=== PATIENT | female | born 1935 | race Caucasian/White ===

== ENCOUNTER 2022-03-07 07:23 | Day surgery (SDC) | payer MEDICARE, BC, SELFPAY ==
[2022-03-07 07:45] VITALS: BMI 25.3
[2022-03-07 07:54] VITALS: BP 122/96; PULSE 80; RESP 16; TEMP 36.6; O2SAT 97
[2022-03-07] MEDS: LACTATED RINGERS 1000 ML 1,000 ML 100 ML IV (08:00)
[2022-03-07] MEDS: SODIUM CHLORIDE 0.9 % (FLUSH) 10 ML SYRINGE IVF (08:05)
[2022-03-07] MEDS: LIDOCAINE 1% MDV 20 ML INJECTION (09:37)
[2022-03-07] MEDS: BUPIVACAINE 0.25% 30 ML INJECTION (09:37)
[2022-03-07 10:02] VITALS: BP 107/74; PULSE 59; RESP 14; TEMP 36.1; O2SAT 94
--- NOTE | 2022-03-07 10:04 | W.ANESCHARGE ---
Anesthesia Charges Start Date/Time Anesthesia Start Date: 03/07/22 Anesthesia Start Time: 09:18 Stop Date/Time Anesthesia Stop Date: 03/07/22 Anesthesia Stop Time: 10:05 Summary Emergency: No Extremes of Age: Over 70-CPT 71167
--- NOTE | 2022-03-07 10:08 | W.PM.GYNPROC ---
Procedure Note Date Seen: 03/07/22 Procedure Details: PREOPERATIVE DIAGNOSIS: 1. Thickened endometrial stripe by ultrasound. 2. Atypical squamous cells, favor endometrial, seen on endometrial biopsy. Additional sample requested for definitive diagnosis. POSTOPERATIVE DIAGNOSIS: 1. Thickened endometrial stripe by ultrasound. 2. Atypical squamous cells, favor endometrial, seen on endometrial biopsy. Additional sample requested for definitive diagnosis. NAME OF PROCEDURE: 1. Hysteroscopy. 2. D and C 3. Polypectomies (x3). SURGEON: Fabiola. ANESTHESIA: Monitored anesthesia care and paracervical block. COMPLICATIONS: None.. ESTIMATED BLOOD LOSS: Less than 10 mL. FINDINGS: 3 endometrial polyps. Two were benign-appearing, globular, approximately 1 cm in diameter each, arising from the posterior endometrial cavity. The 3rd was broad-based and smaller, slightly hyperemic, located along the right side of the endometrial cavity near the internal cervical os. PATHOLOGY SPECIMENS: 1. Endometrial polyps and endometrial curettings sent as a single specimen. PROCEDURE: After obtaining informed consent, the patient was taken to the operating room where she received monitored anesthesia care. She was prepared and draped in the normal sterile fashion, in the dorsal lithotomy position. An open-sided bivalve speculum was introduced into the vagina and the cervix visualized. The anterior lip of the cervix was grasped with a single-tooth tenaculum for traction. A paracervical block was then administered using a total of 20 mL of a 50/50 mixture of 0.25% Marcaine and 1% lidocaine plain. The uterus was gently sounded. Sound length was 7.5 cm. The cervix was gently dilated to a #6 Hegar dilator. A hysteroscope was then advanced under direct visualization through the cervix into the uterine cavity. Sterile normal saline was used as distending medium. The uterine cavity was carefully inspected with the findings noted above. The TruClear morcellator was inserted through the operating channel in the hysteroscope. The morcellator was used to remove the polyps in their entirety. Pictures were taken for documentation purposes, however, due to technical difficulties, the pictures taken prior to polyp removal were not saved in the system. The hysteroscope was then removed. The endometrial lining was then sharply curetted. The hysteroscope was removed. The tenaculum was removed. There was little bleeding from the tenaculum site, which was controlled with direct pressure sponge stick. All instruments were then removed. The patient tolerated the procedure well. Sponge, lap, needle, and instrument counts reported as correct x2. The patient was taken to the recovery room awake in a stable condition.
[2022-03-07 10:17] VITALS: BP 113/74; PULSE 59; RESP 14; O2SAT 94
[2022-03-07 10:30] VITALS: BP 129/78; PULSE 70; RESP 16; O2SAT 96
[2022-03-07 10:45] VITALS: BP 122/88; PULSE 72; RESP 16; O2SAT 97
--- NOTE | 2022-03-07 10:49 | W.ANESCHARGE ---
Anesthesia Charges Start Date/Time Anesthesia Start Date: 03/07/22 Anesthesia Start Time: 09:18 Stop Date/Time Anesthesia Stop Date: 03/07/22 Anesthesia Stop Time: 10:05 Summary Emergency: No Extremes of Age: Over 70-CPT 69132
[2022-03-07 11:00] VITALS: BP 120/77; PULSE 74; RESP 16; O2SAT 97
== END 2022-03-07 11:12 | disposition home or self-care (01) ==
PROVIDERS: PCP Family Medicine; Visit Provider Obstetrics & Gynecology
PROC: 0UDB8ZZ Extraction of Endometrium, Via Natural or Artificial Opening Endoscopic (ICD-10-PCS; CPT 58558; principal; 2022-03-07 08:45)
DX: R93.89 Abnormal findings on diagnostic imaging of other specified body structures (principal); N84.0 Polyp of corpus uteri; R87.619 Unspecified abnormal cytological findings in specimens from cervix uteri
CPT/HCPCS: 58558; 00952; 99100; J1100; J2405; J2704; J3010; J3490; J7120

== ENCOUNTER 2022-05-22 10:38 | Emergency (ER) | payer MEDICARE, BC, SELFPAY ==
[2022-05-22] VITALS (34 sets, daily range): BP systolic 111–148; BP diastolic 62–106; PULSE 51–72; RESP 16; TEMP 36.1–37; O2SAT 94–99; BMI 24.1
--- NOTE | 2022-05-22 11:04 | CRLHL7_ITS ---
For Patients: As a result of the Century Cures Act, medical imaging exams and procedure reports are released immediately into your electronic medical record. You may view this report before your referring provider. If you have questions, please contact your health care provider. Indication: Left-sided numbness Technique: Volumetric multidetector CT images of the head were obtained without the administration of low osmolar intravenous contrast. Comparison: CT head November 29, 2014 Findings: There is no intra-axial or extra-axial fluid collection. There is no mass effect or midline shift. There is age-related cortical atrophy with mild sulcal widening and ex vacuo dilatation of the lateral ventricles. There is again seen extensive subcortical and periventricular hypoattenuation consistent with chronic small vessel disease changes. There are likely superimposed old lacunar changes of the right greater than left basal ganglia. Otherwise, the brain parenchyma is preserved in attenuation and king-white differentiation. The orbits and their contents are grossly within normal limits. The bony calvarium is grossly intact. The paranasal sinuses are clear. The mastoid air cells are well aerated. Impression: Redemonstration and mild progression of chronic small vessel disease changes of the white matter from remote comparison without evidence of new acute intracranial abnormality. If there is persistent clinical concern for subtle lacunar infarct, follow-up with MRI is recommended. Please note that all CT scans at this facility use dose modulation, iterative reconstruction, and/or weight-based dosing when appropriate to reduce radiation dose to as low as reasonably achievable. Dictated by Anselmo Hansen MD @ 05/22/2022 11:50:26 AM (Electronically Signed)
--- NOTE | 2022-05-22 11:25 | CRLHL7_ITS ---
For Patients: As a result of the Cures Act, medical imaging exams and procedure reports are released immediately into your electronic medical record. You may view this report before your referring provider. If you have questions, please contact your health care provider. INDICATION: Recurrent left hemiparesis. Headaches. TECHNIQUE: Sagittal T1, axial FLAIR, T2, diffusion-weighted and susceptibility weighted images of the brain. COMPARISON: CT brain performed earlier today 05/22/2022. FINDINGS: The ventricles are normal in size and configuration. Mild prominence of convexity subarachnoid spaces due to mild volume loss. There is no evidence of recent ischemic infarction. There are no areas of diffusion restriction. There is no evidence of intracranial hemorrhage. There are multifocal and confluent areas of FLAIR/T2 hyperintensity within the bilateral supratentorial white matter, basal ganglia and ade consistent with chronic small vessel ischemic disease and/or small chronic lacunar infarcts. No post orbital or suprasellar mass. Mild focal mucosal thickening in the left frontal sinus and in the inferior left mastoid. The other paranasal sinuses are clear. IMPRESSION: 1. No evidence of recent ischemic infarction, intracranial hemorrhage or mass. 2. Multifocal signal abnormalities within cerebral white matter basal ganglia and ade consistent with moderate chronic microvascular ischemia. Dictated by Deandre Purvis MD @ 05/22/2022 1:24:03 PM (Electronically Signed)
--- NOTE | 2022-05-22 11:26 | ED_ITS ---
HPI - Neuro Symptoms/Deficit General Chief Complaint: Neuro Symptoms/Altered Deficit Stated Complaint: Numbness left side Time Seen by Provider: 05/22/22 11:06 History of Present Illness HPI Narrative: This 86-year-old female comes in reporting 3 episodes of left hemiparesis. She states that she began getting headaches about a week ago. She does not typically get headaches. Three days ago she had left basilia paresis with decreased sensation and strength in her left upper and lower extremity. This lasted 5-10 minutes then resolved. She had another similar episode yesterday. Again this morning she had loss of sensation and strength in her left side also including her face. These symptoms have resolved but she did feel unsteady when ambulating to the car to come here. She is otherwise in good health. She states that she has not had imaging of her brain in the past. Related Data Home Medications Medication Instructions Recorded Confirmed cholecalciferol (vitamin D3) 25 2,000 unit PO .Bedtime 12/26/21 05/22/22 mcg (1,000 unit) tablet nortriptyline 10 mg capsule 20 mg PO .hs 12/26/21 05/22/22 Allergies Allergy/AdvReac Type Severity Reaction Status Date / Time No Known Drug Allergies Allergy Verified 05/22/22 10:57 Review of Systems Status of ROS: Reports: 10 or more systems reviewed and unremarkable except as noted in History and below Narrative: Constitutional: No fevers, no weight gain or loss. Eyes: No discharge. No vision changes. HENT: No congestion, no sore throat, no ear pain. Migraine headaches as described above. Cardiovascular: No chest pain, no palpitations. Respiratory: No shortness of breath, no wheezes, no cough. Gastrointestinal: No abdominal pain, no vomiting, no diarrhea. Genitourinary: No dysuria, no hematuria. Musculoskeletal: Normal range of motion. Skin: No rashes, no pruritis. Neurological: No dizziness or speech change. She reports episodes of decreased sensation and strength in the left side as described above. Endo/Heme/Allergies: No bruising or bleeding. No polydipsia. Pysch: no suicidality, no anxiety, no insomnia. All other systems reviewed and are negative. 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 Highest level of school completed/degree received: Master's degree Physical activity type details: Biking and walking How many days of moderate to strenuous exercise, like a brisk walk, did you do in the last 7 days: 5 Smoking Status: Never smoker How often do you have a drink containing alcohol: 4 or more times a week How many standard drinks containing alcohol do you have on a typical day: 1 or 2 AUDIT-C Alcohol total score: 4 Non-prescribed substance use: denies use Caffeine: No Are you now , , , , never or living with a partner: Social isolation score (0-1 are the most socially isolated patients): 0 Do you think of yourself as: straight/heterosexual Gender Identity: female Are you currently sexually active: Yes In the past 12 months, how many sex partners have you had: one Exam Narrative: Exam Narrative: Constitutional: Well-developed, well-nourished, no acute distress. HEENT: Normocephalic, atraumatic. Neck: Normal range of motion. Nontender. Supple. Heart: Regular. No murmurs. Normal rate. Intact distal pulses. Lungs: Clear to auscultation. No chest discomfort. No wheezes, rhonchi, or rales. Abdomen: Normal bowel sounds. Nontender. No rebound tenderness. Genitalia: Deferred. Back: No midline tenderness. Normal range of motion. Extremities: Normal range of motion. No injury. Skin: Intact. No rash. Warm. No erythema or pallor. Neurologic: No altered sensation. Alert and oriented. No facial asymmetry. Tongue is midline. [id number] is normal. No pronator drift. She is able to raise her right leg up to my hand but has some difficulty raising her left leg. Psychiatric: No suicidality. No anxiety or depression. No insomnia. Nursing notes and vitals signs are reviewed. Const: Vital Signs, click to edit/add: Vital Signs - 24 hr 05/22/22 10:49 05/22/22 11:56 05/22/22 12:00 Temperature 98.6 F Pulse Rate 64 65 Pulse Rate [Right Pulse Oximeter] 51 L Respiratory Rate 16 Blood Pressure Blood Pressure [Ri ght Upper Arm] 148/84 H Pulse Oximetry 98 95 95 Oxygen Delivery Me thod Room Air 05/22/22 12:02 05/22/22 13:04 05/22/22 13:06 Temperature Pulse Rate 65 63 63 Pulse Rate [Right Pulse Oximeter] Respiratory Rate Blood Pressure 125/75 132/90 H Blood Pressure [Ri ght Upper Arm] Pulse Oximetry 96 96 94 Oxygen Delivery Me thod 05/22/22 13:15 05/22/22 13:30 05/22/22 13:32 Temperature Pulse Rate 63 64 68 Pulse Rate [Right Pulse Oximeter] Respiratory Rate Blood Pressure 121/62 Blood Pressure [Ri ght Upper Arm] Pulse Oximetry 96 95 97 Oxygen Delivery Me thod 05/22/22 13:45 05/22/22 14:00 05/22/22 14:02 Temperature Pulse Rate 69 64 65 Pulse Rate [Right Pulse Oximeter] Respiratory Rate Blood Pressure 121/76 Blood Pressure [Ri ght Upper Arm] Pulse Oximetry 98 98 97 Oxygen Delivery Me thod 05/22/22 14:15 05/22/22 14:30 05/22/22 14:31 Temperature Pulse Rate 65 65 66 Pulse Rate [Right Pulse Oximeter] Respiratory Rate Blood Pressure 111/75 Blood Pressure [Ri ght Upper Arm] Pulse Oximetry 94 96 96 Oxygen Delivery Me thod 05/22/22 14:45 05/22/22 13:00 05/22/22 15:09 Temperature 97 F L Pulse Rate 61 66 Pulse Rate [Right Pulse Oximeter] Respiratory Rate Blood Pressure Blood Pressure [Ri ght Upper Arm] Pulse Oximetry 95 99 Oxygen Delivery Me thod 05/22/22 15:15 05/22/22 15:30 05/22/22 15:31 Temperature Pulse Rate 65 66 66 Pulse Rate [Right Pulse Oximeter] Respiratory Rate Blood Pressure 119/70 Blood Pressure [Ri ght Upper Arm] Pulse Oximetry 97 96 97 Oxygen Delivery Me thod 05/22/22 15:32 05/22/22 15:45 05/22/22 16:00 Temperature Pulse Rate 64 68 66 Pulse Rate [Right Pulse Oximeter] Respiratory Rate Blood Pressure Blood Pressure [Ri ght Upper Arm] Pulse Oximetry 96 96 97 Oxygen Delivery Me thod 05/22/22 16:01 05/22/22 16:15 05/22/22 16:30 Temperature Pulse Rate 66 64 63 Pulse Rate [Right Pulse Oximeter] Respiratory Rate Blood Pressure 116/67 Blood Pressure [Ri ght Upper Arm] Pulse Oximetry 97 94 97 Oxygen Delivery Me thod 05/22/22 16:32 05/22/22 16:33 05/22/22 16:45 Temperature Pulse Rate 65 65 67 Pulse Rate [Right Pulse Oximeter] Respiratory Rate Blood Pressure 120/79 Blood Pressure [Ri ght Upper Arm] Pulse Oximetry 97 96 97 Oxygen Delivery Me thod 05/22/22 17:00 05/22/22 17:01 05/22/22 17:15 Temperature Pulse Rate 72 68 71 Pulse Rate [Right Pulse Oximeter] Respiratory Rate Blood Pressure 139/106 H Blood Pressure [Ri ght Upper Arm] Pulse Oximetry 95 97 97 Oxygen Delivery Me thod Course Vital Signs Vital signs: Initial Vital Signs Temperature 98.6 F 05/22/22 10:49 Temperature Source Temporal Artery Scan 05/22/22 10:49 Pulse Rate 51 L 05/22/22 10:49 Respiratory Rate 16 05/22/22 10:49 Blood Pressure 148/84 H 05/22/22 10:49 Blood Pressure Mean 105 05/22/22 10:49 Blood Pressure Position Sitting 05/22/22 10:49 Pulse Oximetry 98 05/22/22 10:49 Oxygen Delivery Method 05/22/22 10:49 Vital Signs Temperature 98.6 F 05/22/22 10:49 Pulse Rate 51 L 05/22/22 10:49 Respiratory Rate 16 05/22/22 10:49 Blood Pressure 148/84 H 05/22/22 10:49 Pulse Oximetry 98 05/22/22 10:49 Oxygen Delivery Method 05/22/22 10:49 Temperature 97 F L 05/22/22 13:00 Pulse Rate 71 05/22/22 17:15 Respiratory Rate 16 05/22/22 10:49 Blood Pressure 139/106 H 05/22/22 17:01 Pulse Oximetry 97 05/22/22 17:15 Oxygen Delivery Method 05/22/22 10:49 MDM - Neuro Symptoms/Deficit MDM Narrative Medical decision making narrative: This patient comes in with recurrent left hemiparesis with associated headaches. She has had headaches over the past week and reports that prior to this she did not have headaches. She has had 3 episodes of brief hemiparesis involving the left side lasting fiber 10 minutes. Upon arrival here her exam is normal except for some mild weakness of her left lower extremity. Her NIH stroke scale returns at a score of 2 based on this left lower extremity weakness. CT imaging of the head shows no acute findings. Her symptoms are suspicious such that I did order an MRI with and without contrast of the head. This was done without contrast and returns with no acute findings. I did speak with a neurologist application packager at [facility] regarding these matters. He recommended CTA of the head and neck and stated if there was no vascular compromise that the patient would be able to go home and take an aspirin daily. If there is some narrowing of the vessels Plavix could be added. CT angiogram results returned with no such findings so the patient is okay to be discharged home and encouraged to take an aspirin daily and to follow-up with her primary physician. I advised her to return if symptoms are recurrent. Lab Data Labs: Lab Results 05/22/22 05/22/22 05/22/22 Range/Units 11:50 11:50 11:50 WBC 5.48 (4.50-11.00) K/uL RBC 4.43 (4.00-5.20) m/uL Hgb 13.8 (12.0-16.0) gm/dL Hct 41.0 (33.0-51.0) % MCV 93 (80-100) fL MCH 31 (26-34) pg MCHC 34 (32-36) gm/dL RDW Coeff of [place] 12.0 (11.5-15.5) % Plt Count 291 (140-440) K/uL Neut % (Auto) 60.8 (42.0-72.0) % Lymph % (Auto) 27.7 (20-44) % [place] % (Auto) 7.7 (0.0-11.0) % Eos % (Auto) 2.0 (0.0-7.0) % Baso % (Auto) 0.9 (0.0-3.0) % Neut # (Auto) 3.33 (1.7-7.0) K/uL Lymph # (Auto) 1.52 (0.90-2.90) K/uL [place] # (Auto) 0.40 (0.00-0.90) K/UL Eos # (Auto) 0.11 (0.00-0.50) K/uL Baso # (Auto) 0.05 (0.00-0.30) K/uL INR 0.88 L (0.91-1.10) Sodium 139 (135-149) mmol/L Potassium 4.5 (3.6-5.1) mmol/L Chloride 108 (96-114) mmol/L Carbon Dioxide 28 (20-32) mmol/L BUN 19 (7-30) mg/dL Creatinine 0.7 (0.5-1.5) mg/dL Estimated Creat Clear 36.34 Estimated GFR 84 ml/min Glucose 86 (60-115) mg/dL Calcium 9.0 (8.4-10.6) mg/dL Imaging Data CT scan - head: Radiologist's impression: mpression: Redemonstration and mild progression of chronic small vessel disease changes of the white matter from remote comparison without evidence of new acute intracranial abnormality. If there is persistent clinical concern for subtle lacunar infarct, follow-up with MRI is recommended. MRI Head: Radiologist's impression: FINDINGS: The ventricles are normal in size and configuration. Mild prominence of convexity subarachnoid spaces due to mild volume loss. There is no evidence of recent ischemic infarction. There are no areas of diffusion restriction. There is no evidence of intracranial hemorrhage. There are multifocal and confluent areas of FLAIR/T2 hyperintensity within the bilateral supratentorial white matter, basal ganglia and ade consistent with chronic small vessel ischemic disease and/or small chronic lacunar infarcts. No post orbital or suprasellar mass. Mild focal mucosal thickening in the left frontal sinus and in the inferior left mastoid. The other paranasal sinuses are clear. IMPRESSION: 1. No evidence of recent ischemic infarction, intracranial hemorrhage or mass. 2. Multifocal signal abnormalities within cerebral white matter basal ganglia and ade consistent with moderate chronic microvascular ischemia. CTA head/neck: Radiologist's impression: The thoracic aorta demonstrates a normal super arch branching pattern. The common carotid arteries are patent. The carotid bifurcations demonstrate no significant atherosclerotic calcification or mural thrombus. No evidence of high-grade stenosis according to the NASCET criteria. The distal internal carotid arteries are patent. There is a dominant right and mildly hypoplastic left vertebral artery which are otherwise patent throughout their lengths. There is minimal atherosclerotic calcification within the carotid siphons. The anterior cerebral and middle cerebral arteries are patent. The basilar artery is patent. The posterior cerebral arteries are patent with mild atherosclerotic irregularity of the proximal right posterior cerebral artery. ECG Data Attestation: I personally reviewed and interpreted this ECG as follows: Interpretation: Normal sinus rhythm. Rate is 75 beats per minute. There are no ST or T-wave abnormalities. Discharge Plan Discharge Clinical Impression: Transient cerebral ischemia Patient Disposition: Home w/ Parent or Adult Condition: Improved Additional Instructions: Taken aspirin daily. Follow-up with primary physician. Return if symptoms are recurrent or worsening. Prescriptions: No Action nortriptyline 10 mg capsule 20 mg PO .hs cholecalciferol (vitamin D3) 25 mcg (1,000 unit) tablet 2,000 unit PO .Bedtime Follow Up/Referrals: Angeles Huntley MD [Primary Care Provider] - Stand Alone Forms: [employer] Info Instructions
[2022-05-22 11:58] LABS: Basophils Absolute Auto 0.05 K/uL (0.00-0.30); Basophils Percent Auto 0.9 % (0.0-3.0); Eosinophils Absolute Auto 0.11 K/uL (0.00-0.50); Hemoglobin* 13.8 gm/dL (12.0-16.0); Immature Granulocytes Abs Auto 0.05 K/uL (0.00-0.30); Immature Granulocytes Pct Auto 0.9 %; Lymphocytes Absolute Auto 1.52 K/uL (0.90-2.90); Lymphocytes Percent Auto 27.7 % (20-44); Mean Corpuscular HGB Conc 34 gm/dL (32-36); Mean Corpuscular Hemoglobin 31 pg (26-34); Mean Corpuscular Volume 93 fL (80-100); Monocytes Percent Auto 7.7 % (0.0-11.0); Neutrophils Absolute Auto 3.33 K/uL (1.7-7.0); Neutrophils Percent Auto 60.8 % (42.0-72.0); Platelet Count* 291 K/uL (140-440); Red Blood Count 4.43 m/uL (4.00-5.20); White Blood Count* 5.48 K/uL (4.50-11.00)
[2022-05-22 12:12] LABS: Slide Review Reflex No
[2022-05-22 12:16] LABS: Chloride* 108 mmol/L (96-114); INR 0.88 (0.91-1.10); Potassium* 4.5 mmol/L (3.6-5.1); Prothrombin Time 12.5 Seconds; Sodium* 139 mmol/L (135-149)
[2022-05-22 12:18] LABS: Creatinine* 0.7 mg/dL (0.5-1.5); Est. Creatinine Clearance* 36.34; Estimated Glomerular Filt Rate 84 ml/min
[2022-05-22 12:19] LABS: Blood Urea Nitrogen* 19 mg/dL (7-30); Carbon Dioxide* 28 mmol/L (20-32); Glucose* 86 mg/dL (60-115)
--- NOTE | 2022-05-22 14:20 | CT_ITS ---
Final Report Patient: LION COELLO Facility:?[facility] Patient ID:?[id number] Site Patient [id number]:?[id number]. Site :?[id number] Study:?CT Head Angio 95CC ISOVUE 370 NON ACUTE-05/22/2022 3:07:31 PM Ordering Physician:Gonzalo Zhang Final Report: DATE: 05/22/2022. CLINICAL HISTORY: Acute neurological deficit. TECHNIQUE: Standard helical CT image acquisition through the head and neck was performed after intravenous contrast bolus enhancement. Multiplanar reconstructed images were performed and interpreted. COMPARISON: None available. FINDINGS: The origins of the great vessels from the aortic arch are patent. The origins of the right and left vertebral arteries are patent. The common carotid arteries are patent. No significant luminal stenoses of the proximal internal carotid arteries by NASCET criteria. The more distal cervical segments of the internal carotid arteries are patent. The cervical segments of the vertebral arteries are patent. Intracranial atherosclerotic disease with short-segment occlusion of the mid P2 segment of the right posterior cerebral artery. In addition, there is [id number] stenosis of the proximal P2 segment of the left posterior cerebral artery. No evidence of cerebral aneurysm or findings to suggest an arteriovenous shunting lesion. IMPRESSION: 1. 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 This is of unknown chronicity. 2. Intracranial atherosclerotic disease with mild to moderate stenosis of the proximal P2 segment of the left posterior cerebral artery. 3. Patent cervical arterial vasculature without hemodynamically significant luminal stenosis. Please note that all CT scans at this facility use dose modulation, iterative reconstruction, and/or weight-based dosing when appropriate to reduce radiation dose to as low as reasonably achievable. Dictated by Sascha Deleon MD @ 05/22/2022 5:12:12 PM (Electronic Signature)
== END 2022-05-22 17:40 | disposition home or self-care (01) ==
PROVIDERS: Emergency Provider Emergency Medicine Emergency Medical Services; PCP Family Medicine
DX: G45.9 Transient cerebral ischemic attack, unspecified (principal)
CPT/HCPCS: 36415; 70450; 70496; 70498; 70551; 80048; 85025; 85610; 93005; 99285; Q9967

== ENCOUNTER 2023-01-21 12:37 | Emergency (ER) | payer MEDICARE, BC, SELFPAY ==
[2023-01-21] VITALS (8 sets, daily range): BP systolic 170; BP diastolic 94; PULSE 62–74; RESP 16; TEMP 36.7; O2SAT 93–96; BMI 24.1
--- NOTE | 2023-01-21 12:40 | ED.GENADULT ---
HPI - General Adult General Time Seen by Provider: 12:40 Date Seen: 01/21/23 Chief complaint: Chest Pain Stated complaint: Tightness and pain in chest and diff swallowing Time Seen by Provider: 01/21/23 12:40 Source: patient and RN notes reviewed Mode of arrival: ambulatory Limitations: no limitations History of Present Illness HPI narrative: This 87-year-old female is ambulatory into the ED accompanied by a male plaster applicator with chest tightness. They were going to go shopping and she developed chest pain while grocery shopping. She felt it substernal centrally in the chest, was sharp for about 20 minutes. She can not say that there was associated shortness of breath. With it though she felt a sense of tightening in her throat. No sense of palpitations, no nausea or vomiting, no abdominal pain. She has not been sick with anything. Maybe a little sense of heartburn type feeling with these symptoms. At time of presentation, she has had symptoms for about 45 minutes, the you sharp worst part of it has gone away. She is left with more of a dull type sensation. She has not had anything like this before, has not been diagnosed with heart disease. She a few years ago maybe was having some more left-sided chest discomfort and points more to her axillary area, she has not had any of those symptoms maybe for a couple of years now. In May she was having potential TIAs with left sided lower extremity paresis, associated with migraine headaches. She was down at [place] recently for corneal transplant surgery, the eye doctor she was seen was worried about her not having a diagnosis, had recommended she see Neurology which they are working on. Have reviewed with patient that her symptoms do not seem to be consistent with a TIA today and she does agree with this, her concern is obviously her heart. She does state if she gets a chest CT, her doctor at [place] wanted her to have 1 with IV contrast. Did review with her that we will be doing a D-dimer, this is certainly a possibility that we will consider for imaging. Thromboembolic disease with consideration for pulmonary emboli certainly are a diagnosis we entertain when people come in with chest symptoms. She last took her aspirin last night, takes it at night. Did review with her that we will give her aspirin now in case this may be her heart. She reports that she is still walking, very active. Yesterday she walked 2 miles. Related Data Home Medications Medication Instructions Recorded Confirmed cholecalciferol (vitamin D3) 25 2,000 unit PO .Bedtime 12/26/21 05/22/22 mcg (1,000 unit) tablet nortriptyline 10 mg capsule 20 mg PO .hs 12/26/21 05/22/22 Allergies Allergy/AdvReac Type Severity Reaction Status Date / Time No Known Drug Allergies Allergy Verified 01/21/23 12:54 Review of Systems Status of ROS: Reports: 6 or more systems reviewed and unremarkable except as noted in History and below [facility] Medical History Health care directive on file ?Z78.9 - Other specified health status (ICD-10) Diverticular disease (03/17/09) ?K57.90 - Diverticulosis of intestine, part unspecified, without perforation or abscess without bleeding (ICD-10) Fracture of left patella (2007) ?S82.002A - Unspecified fracture of left patella, initial encounter for closed fracture (ICD-10) Herpes simplex conjunctivitis, 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) ?B00.53 - Herpesviral conjunctivitis (ICD-10) Surgical History 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) ?Z96.649 - Presence of unspecified artificial hip joint (ICD-10) History of carpal tunnel release (03/17/09) ?Z98.890 - Other specified postprocedural states (ICD-10) Hx of appendectomy ?Z90.49 - Acquired absence of other specified parts of digestive tract (ICD-10) Social History 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, 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 Highest level of school completed/degree received: Master's degree Physical activity type details: Biking and walking How many days of moderate to strenuous exercise, like a brisk walk, did you do in the last 7 days: 5 Smoking Status: Never smoker Do you use any of these nicotine containing products: None How often do you have a drink containing alcohol: 4 or more times a week How many standard drinks containing alcohol do you have on a typical day: 1 or 2 AUDIT-C Alcohol total score: 4 Non-prescribed substance use: denies use Caffeine: No Are you now , , , , never or living with a partner: Social isolation score (0-1 are the most socially isolated patients): 0 Do you think of yourself as: straight/heterosexual Gender Identity: female Are you currently sexually active: Yes In the past 12 months, how many sex partners have you had: one service: No Exam Const: Vital Signs, click to edit/add: Vital Signs - 24 hr 01/21/23 12:50 01/21/23 12:50 01/21/23 13:09 Temperature 98.1 F Pulse Rate 63 Pulse Rate [Right Pulse Oximeter] 74 Respiratory Rate 16 Blood Pressure [Ri ght Upper Arm] 170/94 H Pulse Oximetry 96 96 95 Oxygen Delivery Me thod Room Air 01/21/23 13:15 01/21/23 13:30 01/21/23 13:34 Temperature Pulse Rate 65 63 Pulse Rate [Right Pulse Oximeter] Respiratory Rate Blood Pressure [Ri ght Upper Arm] Pulse Oximetry 95 94 96 Oxygen Delivery Me thod 01/21/23 13:45 01/21/23 14:00 01/21/23 14:26 Temperature Pulse Rate 62 68 67 Pulse Rate [Right Pulse Oximeter] Respiratory Rate Blood Pressure [Ri ght Upper Arm] Pulse Oximetry 94 93 96 Oxygen Delivery Me thod Megan is an 87-year-old female that is very pleasant, is alert interactive, speech is normal, no hoarseness. Pupils are equal round, sclera clear, face atraumatic, symmetrical facial function. Neck is supple Documenting provider has reviewed patient's vital signs: yes Course Course ED Course: This is an 87-year-old female presenting with chest discomfort. Concerns for vascular phenomenon including such things like aneurysm, dissection, cardiac disease with ischemia are all possibilities. We will also consider thromboembolic disease such as pulmonary emboli. This could be musculoskeletal or GI as well. We will have her on cardiac monitoring, pulse oximetry. She understands that we will be able to get a point of care troponin rather quickly. Depending on what I find with that, will likely proceed with medications. We are going to give her 324 mg chewable aspirin now. Consider chest CT imaging. Full complement of labs will be done. Reevaluation(s) Time of Reevaluation #1: 13:35 Reevaluation #1: Have reviewed with patient her D-dimer is elevated, initial troponin is normal. We will be proceeding with chest CT PE protocol. Her D-dimer was 1.6. She is aware that she will need to follow up troponin in a few hours here. Pain overall is better, describes it just as a little dull ache now. She has been stung by a bee yesterday, has been using some Benadryl, was on her thumb area and see no evidence of any anaphylaxis with changes in vital signs, reviewed with them unlikely to be an allergic reaction with a bee sting happening yesterday. I see no evidence of any rash anywhere. I do appreciate them bringing this up, reviewed signs and symptoms of allergic reaction which I do not believe is her issue at this time. Time of Reevaluation #2: 16:39 Reevaluation #2: Have brought in patient's CT report and her lab report. There was a question of edema or some mild changes in the lung parenchyma. I did physically see this when I ran through the CT scan. Her proBNP is completely normal. She is now chest pain-free and troponins and EKGs have not show any evidence of elevation. I cannot tell her exactly why she had discomfort but at this time I do think she is safe to discharge to home for outpatient follow-up, she does have an appointment this Sunday with her doctor which was pre scheduled. This is very fortuitous. She understands that if she has return of her symptoms, develops any breathing issues, cough for fever, that we do need to see her back in the interim. 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 It is unlikely for her that this will be limiting given that she is 87 at this time. We did discuss mesothelial in a but hopefully this will not be a problematic issue for her. I have a copy of the CT as well as the labs for her to take to her primary, she can get her scheduled for appropriate outpatient further follow-up as needed. Given that she is pain-free, will allow for discharge to home. We have extremely limited bed capacity at this time it, given the fact that she is pain-free and I do trash she will return with return of symptoms, I am comfortable with her having a trial at home to follow-up outpatient. Vital Signs Vital signs: Initial Vital Signs Temperature 98.1 F 01/21/23 12:50 Temperature Source Temporal Artery Scan 01/21/23 12:50 Pulse Rate 74 01/21/23 12:50 Pulse Rhythm Regular 01/21/23 12:50 Pulse Strength 3+ Normal 01/21/23 12:50 Respiratory Rate 16 01/21/23 12:50 Respiratory Effort Normal 01/21/23 12:50 Respiratory Depth Normal 01/21/23 12:50 Respiratory Pattern Normal 01/21/23 12:50 Blood Pressure 170/94 H 01/21/23 12:50 Blood Pressure Mean 119 H 01/21/23 12:50 Blood Pressure Position Sitting 01/21/23 12:50 Pulse Oximetry 96 01/21/23 12:50 Oxygen Delivery Method Room Air 01/21/23 12:50 Vital Signs Temperature 98.1 F 01/21/23 12:50 Pulse Rate 74 01/21/23 12:50 Respiratory Rate 16 01/21/23 12:50 Blood Pressure 170/94 H 01/21/23 12:50 Pulse Oximetry 96 01/21/23 12:50 Oxygen Delivery Method Room Air 01/21/23 12:50 Temperature 98.1 F 01/21/23 12:50 Pulse Rate 67 01/21/23 14:26 Respiratory Rate 16 01/21/23 12:50 Blood Pressure 170/94 H 01/21/23 12:50 Pulse Oximetry 96 01/21/23 14:26 Oxygen Delivery Method Room Air 01/21/23 12:50 Medical Decision Making Lab Data Lab results reviewed: Yes I reviewed the patient's lab results Labs: Lab Results 01/21/23 01/21/23 01/21/23 Range/Units 12:55 12:56 15:55 WBC 5.43 (4.50-11.00) K/uL RBC 4.19 (4.00-5.20) m/uL Hgb 13.4 (12.0-16.0) gm/dL Hct 40.5 (33.0-51.0) % MCV 97 (80-100) fL MCH 32 (26-34) pg MCHC 33 (32-36) gm/dL RDW Coeff of [place] 12.5 (11.5-15.5) % Plt Count 312 (140-440) K/uL Neut % (Auto) 61.6 (42.0-72.0) % Lymph % (Auto) 25.8 (20-44) % [place] % (Auto) 7.9 (0.0-11.0) % Eos % (Auto) 3.9 (0.0-7.0) % Baso % (Auto) 0.6 (0.0-3.0) % Neut # (Auto) 3.35 (1.7-7.0) K/uL Lymph # (Auto) 1.40 (0.90-2.90) K/uL [place] # (Auto) 0.40 (0.00-0.90) K/UL Eos # (Auto) 0.21 (0.00-0.50) K/uL Baso # (Auto) 0.03 (0.00-0.30) K/uL Abs Immat Gran (auto) 0.01 (0.00-0.30) K/uL Imm/Tot Granulo (auto) 0.2 % D-Dimer Quant (PE/DVT) 1.60 H (0.00-0.50) ug/ml Sodium 139 (135-149) mmol/L Potassium 4.1 (3.6-5.1) mmol/L Chloride 107 (96-114) mmol/L Carbon Dioxide 23 (20-32) mmol/L Anion Gap 9 (7-15) mEq/L BUN 17 (7-30) mg/dL Creatinine 0.8 (0.5-1.5) mg/dL Estimated Creat Clear 35.66 Estimated GFR 71 ml/min Glucose 81 (60-115) mg/dL Lactate 0.8 (0.5-1.9) mmol/L Calcium 9.5 (8.4-10.6) mg/dL Magnesium 2.3 (1.5-2.6) mg/dL Total Bilirubin 0.5 (0.1-1.5) mg/dL AST 27 (12-35) U/L ALT 21 (4-35) U/L Alkaline Phosphatase 97 (40-150) U/L C-Reactive Protein < 0.5 L (0.5-1.0) mg/dL NT-Pro-B Natriuret Pep 143 pg/mL Total Protein 7.2 (6.0-8.3) g/dL Albumin 4.3 (3.3-5.0) g/dL POC Troponin I 0.02 0.01 (0.01-0.04) ng/ml Imaging Data Chest x-ray: Attestation: I have reviewed the pertinent imaging results. My impression: I see no acute pathology on my preliminary review of this portable chest x-ray. Radiologist's impression: Patient: MEGAN COELLO Facility:?[facility] Patient ID:?[id number] Site Patient ID:?[id number]. Site :?[id number] Study:?XRay Chest PORTABLE-01/21/2023 1:09:56 PM Ordering Physician:Ubaldo Nettles Final Report: HISTORY: Chest pain. TECHNIQUE: One view of the chest. COMPARISON: 07/09/2009. FINDINGS: Cardiac size is upper limits of normal accounting for technique. No change in mildly tortuous versus mildly dilated appearance of the thoracic aorta. There is no pulmonary vascular congestion. Biapical pleural calcifications are unchanged. There is no acute lung infiltrate or pulmonary edema. No pneumothorax or pleural effusion. IMPRESSION: No acute lung infiltrate or pulmonary edema. Dictated by Soy Raines MD @ 01/21/2023 1:38:08 PM Dictated by: Soy Raines MD @ 01/21/2023 13:38:12 (Electronic Signature) CT scan - chest: Attestation: I have reviewed the pertinent imaging results. Radiologist's impression: Patient: MEGAN COELLO Facility:?[facility] Patient ID:?[id number] Site Patient ID:?[id number]. Site :?[id number] Study:?CT Chest Angio PE STUDY-01/21/2023 2:28:47 PM Ordering Physician:Ubaldo Nettles Final Report: Indication: Chest pain, elevated D-dimer Technique: Volumetric multidetector CT images of the chest were obtained after the administration of IV contrast. 95 cc Isovue 370 low osmolar intravenous contrast Comparison: None available. Findings: The thoracic inlet and thyroid gland are unremarkable. The thoracic aorta is nonaneurysmal. There is no central filling defect to suggest pulmonary embolism. There is no mediastinal, hilar or axillary adenopathy. There is mild central bronchial thickening with minimal mucoid impaction of lower lobe bronchi. There are mildly increased interstitial markings likely representing minimal pulmonary vascular congestion with basilar atelectasis and parenchymal scar. Calcified biapical pleural thickening is appreciated no other dense consolidation or effusion. There is no evidence of pulmonary mass or suspicious pulmonary nodule. The partially visualized upper abdominal viscera are within normal limits. The thoracic vertebral body heights are grossly maintained with mild to moderate multilevel degenerative disc disease. Impression: Mildly increased interstitial markings with basilar atelectasis and mild interstitial prominence consistent with pulmonary edema. 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 No pulmonary embolus or dense consolidation. Please note that all CT scans at this facility use dose modulation, iterative reconstruction, and/or weight-based dosing when appropriate to reduce radiation dose to as low as reasonably achievable. Dictated by Anselmo Hansen MD @ 01/21/2023 3:31:02 PM (Electronic Signature) ECG Data Attestation: I personally reviewed and interpreted this ECG as follows: (Sinus rhythm, 77 beats per minute. Incomplete right bundle branch block, QT corrected 454 milliseconds. The inferior Q-waves looked to be similar to prior.) Prior ECG tracings: available for review (EKG from this May, no significant change.) Interpretation: Repeat EKG timed 2:27 p.m. shows sinus bradycardia, 58 beats per minute, incomplete right bundle branch block, left anterior fascicular block. No significant change, no definitive ischemia. QT corrected 453 milliseconds. Discharge Plan Discharge Clinical Impression: Chest pain Patient Disposition: Home, Self-Care Condition: Stable Instructions: Chest Pain (ED) Additional Instructions: Please take reports and labs to your follow-up with her primary care provider Sunday. In the interim, she do develop return of the chest symptoms, have any breathing issues like shortness of breath, developed cough/fever, do need you to be re-evaluated here in the ER. There was no evidence of pulmonary emboli or blood clots in the lungs, no evidence acute heart attack. I do not think that you are suffering from any congestive heart failure as your proBNP lab does not support fluid overload in the lungs. Your primary care provider does need to see the CT report as there are other findings including the pleural plaques which is typically associated with asbestosis exposure. There is nothing to do with this emergently but is something that needs to be considered to be followed. Discuss this further at your visit. Blood pressure was elevated here, this should be rechecked. If your blood pressure is running high, do recommend that you have this treated with your primary care provider. Activity Level: Activity as Tolerated Prescriptions: No Action nortriptyline 10 mg capsule 20 mg PO .hs cholecalciferol (vitamin D3) 25 mcg (1,000 unit) tablet 2,000 unit PO .Bedtime Follow Up/Referrals: Angeles Huntley MD [Primary Care Provider] - Stand Alone Forms: [email or web address] Info Instructions
--- NOTE | 2023-01-21 12:54 | CRLHL7_ITS ---
For Patients: As a result of the Century Cures Act, medical imaging exams and procedure reports are released immediately into your electronic medical record. You may view this report before your referring provider. If you have questions, please contact your health care provider. HISTORY: Chest pain. TECHNIQUE: One view of the chest. COMPARISON: 07/09/2009. FINDINGS: Cardiac size is upper limits of normal accounting for technique. No change in mildly tortuous versus mildly dilated appearance of the thoracic aorta. There is no pulmonary vascular congestion. Biapical pleural calcifications are unchanged. There is no acute lung infiltrate or pulmonary edema. No pneumothorax or pleural effusion. IMPRESSION: No acute lung infiltrate or pulmonary edema. Dictated by Soy Raines MD @ 01/21/2023 1:38:08 PM Dictated by: Soy Raines MD @ 01/21/2023 13:38:12 (Electronically Signed)
[2023-01-21 13:07] LABS: Lactate* 0.8 mmol/L (0.5-1.9)
[2023-01-21 13:12] LABS: Basophils Absolute Auto 0.03 K/uL (0.00-0.30); Basophils Percent Auto 0.6 % (0.0-3.0); Eosinophils Absolute Auto 0.21 K/uL (0.00-0.50); Eosinophils Percent Auto 3.9 % (0.0-7.0); Hematocrit 40.5 % (33.0-51.0); Hemoglobin* 13.4 gm/dL (12.0-16.0); Immature Granulocytes Abs Auto 0.01 K/uL (0.00-0.30); Immature Granulocytes Pct Auto 0.2 %; Lymphocytes Percent Auto 25.8 % (20-44); Mean Corpuscular HGB Conc 33 gm/dL (32-36); Mean Corpuscular Hemoglobin 32 pg (26-34); Mean Corpuscular Volume 97 fL (80-100); Monocytes Percent Auto 7.9 % (0.0-11.0); Neutrophils Absolute Auto 3.35 K/uL (1.7-7.0); Neutrophils Percent Auto 61.6 % (42.0-72.0); Platelet Count* 312 K/uL (140-440); RDW Coefficient of Variation % 12.5 % (11.5-15.5); Red Blood Count 4.19 m/uL (4.00-5.20); White Blood Count* 5.43 K/uL (4.50-11.00)
[2023-01-21 13:13] LABS: Troponin, Point-of-Care* 0.02 ng/ml (0.01-0.04)
[2023-01-21 13:19] LABS: Slide Review Reflex No
[2023-01-21 13:23] LABS: Chloride* 107 mmol/L (96-114)
[2023-01-21 13:24] LABS: Albumin* 4.3 g/dL (3.3-5.0); Potassium* 4.1 mmol/L (3.6-5.1); Sodium* 139 mmol/L (135-149)
[2023-01-21 13:26] LABS: Creatinine* 0.8 mg/dL (0.5-1.5); Est. Creatinine Clearance* 35.66; Estimated Glomerular Filt Rate 71 ml/min
[2023-01-21 13:27] LABS: Alanine Aminotransferase* 21 U/L (4-35); Alkaline Phosphatase* 97 U/L (40-150); Anion Gap 9 mEq/L (7-15); Aspartate Amino Transferase* 27 U/L (12-35); Bilirubin Total* 0.5 mg/dL (0.1-1.5); Blood Urea Nitrogen* 17 mg/dL (7-30); Calcium* 9.5 mg/dL (8.4-10.6); Carbon Dioxide* 23 mmol/L (20-32); Glucose* 81 mg/dL (60-115); Total Protein* 7.2 g/dL (6.0-8.3)
[2023-01-21 13:28] LABS: Magnesium* 2.3 mg/dL (1.5-2.6)
[2023-01-21 13:31] LABS: C Reactive Protein* < 0.5 mg/dL (0.5-1.0)
--- NOTE | 2023-01-21 13:32 | CRLHL7_ITS ---
For Patients: As a result of the Century Cures Act, medical imaging exams and procedure reports are released immediately into your electronic medical record. You may view this report before your referring provider. If you have questions, please contact your health care provider. Indication: Chest pain, elevated D-dimer Technique: Volumetric multidetector CT images of the chest were obtained after the administration of IV contrast. 95 cc Isovue 370 low osmolar intravenous contrast Comparison: None available. Findings: The thoracic inlet and thyroid gland are unremarkable. The thoracic aorta is nonaneurysmal. There is no central filling defect to suggest pulmonary embolism. There is no mediastinal, hilar or axillary adenopathy. There is mild central bronchial thickening with minimal mucoid impaction of lower lobe bronchi. There are mildly increased interstitial markings likely representing minimal pulmonary vascular congestion with basilar atelectasis and parenchymal scar. Calcified biapical pleural thickening is appreciated no other dense consolidation or effusion. There is no evidence of pulmonary mass or suspicious pulmonary nodule. The partially visualized upper abdominal viscera are within normal limits. The thoracic vertebral body heights are grossly maintained with mild to moderate multilevel degenerative disc disease. Impression: Mildly increased interstitial markings with basilar atelectasis and mild interstitial prominence consistent with pulmonary edema. 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 No pulmonary embolus or dense consolidation. Please note that all CT scans at this facility use dose modulation, iterative reconstruction, and/or weight-based dosing when appropriate to reduce radiation dose to as low as reasonably achievable. Dictated by Anselmo Hansen MD @ 01/21/2023 3:31:02 PM (Electronically Signed)
[2023-01-21 13:38] LABS: NT Pro B Type NatriureticPept* 143 pg/mL
[2023-01-21 15:59] LABS: Troponin, Point-of-Care* 0.01 ng/ml (0.01-0.04)
== END 2023-01-21 17:44 | disposition home or self-care (01) ==
PROVIDERS: Emergency Provider Family Medicine; PCP Family Medicine
DX: R10.9 Unspecified abdominal pain (principal)
CPT/HCPCS: 36415; 71045; 71275; 80053; 83605; 83735; 83880; 84484; 85025; 85379; 86140; 93005; 94761; 99284; 99285; Q9967

== ENCOUNTER 2023-11-05 06:37 | Outpatient (CLI) | payer MEDICARE, BC, SELFPAY ==
--- OUTSIDE RECORDS SUMMARY | 2023-11-05 06:40 | XMS_ITS | Encounter Summary ---
Author Organization [facility] Address [address] [place] [address] Care Team Providers Care Career Guidance Counselor Name Role Phone Elsewhere, Pcp Primary Care Provider Unavailabl e Reason for Visit * Reason Comments Eye Exam * Outpatient (Routine) - Closed Specialty Diagnoses / Procedures Referred By Dominick lopez Referred To Contact Ophthalmology Lyly Rivera M.D. [address] [place] [phone] [facility] Referral ID Status Reason Start Date Expiration Date Visits Re quested Visits Authorized [id number] Closed 03/23/2023 03/22/2026 1 1 Encounter Details Date Type Department Care Team (Latest Contact Info) Description 10/31/2023 10:45 AM CDT Office Visit Department of Ophthalmology in [place], [place] [address] [place] [phone] Lyly Rivera M.D. [address] [place] [phone] Endothelial Corneal Dystrophy Bilateral (Primary Dx); Glaucoma Suspect Ocular Hypertension Bilateral Social History Tobacco Use Types Packs/Day Years Used Date Smoking Tobacco: Never Smokeless Tobacco: Never Alcohol Use Standard Drinks/Week Comments Not Currently 0 (1 standard drink = 0.6 oz pur e alcohol) [facility] Utilities Answer Date Recorded In the past 12 months has [employer], gas, oil, or water AF83 threatened to shut off services in your home? No 10/27/2023 Humiliation, Afraid, Rape, and Kick questionnair e Answer Date Recorded Within the last year, have y ou been afraid of your partner or ex-partner? No 08/27/2022 Within the last year, have y ou been humiliated or emotionally abused in other ways by your partner or ex-partner? No Within the last year, have y ou been kicked, hit, slapped, or otherwise physically hurt by your partner or ex-partner? No 08/27/2022 Within the last year, have y ou been raped or forced to have any kind of sexual activity by your partner or ex-partner? No 08/27/2022 Social Connection and Isolat ion Panel [NHANES] Answer Date Recorded In a typical week, how many times do you talk on the phone with family, friends, or neighbors? More than three times a week 08/27/2022 How often do you get togethe r with friends or relatives? Three times a week 08/27/2022 How often do you attend chur ch or amish services? More than 4 times per year 08/27/2022 Do you belong to any clubs o r organizations such as restoration groups, unions, fraternal or athletic groups, or school groups? Yes 08/27/2022 How often do you attend meet ings of the clubs or organizations you belong to? More than 4 times per year 08/27/2022 Are you , , di vorced, , never , or living with a partner? Living with partner 08/27/2022 AUDIT-C Answer Date Recorded Q1: How often do you have a drink containing alc ohol? 2-3 times a week 08/27/2022 Q2: How many drinks containi ng alcohol do you have on a typical day when you are drinking? 1 or 2 08/27/2022 Q3: How often do you have si x or more drinks on one occasion? Never 08/27/2022 Overall Financial Resource Strain (CARDIA) Answe r Date Recorded How hard is it for you to pa y for the very basics like food, housing, medical care, and heating? Not hard at all 08/27/2022 [facility] of Occupat ional Health - Occupational Stress Questionnaire Answer Date Recorded Do you feel stress - tense, restless, nervous, or anxious, or unable to sleep at night because your mind is troubled all the time - these days? Only a little 08/27/2022 Exercise Vital Sign Answer Date Recorde d On average, how many days pe r week do you engage in moderate to strenuous exercise (like a brisk walk)? 7 days 10/27/2023 On average, how many minutes do you engage in exercise at this level? 40 min 10/27/2023 Hunger Vital Sign Answer Date Recorded Within the past 12 months, y ou worried that your food would run out before you got the money to buy more. Never true 10/27/19 24 Within the past 12 months, t he food you bought just didn't last and you didn't have money to get more. Never true 10/27/2023 PRAPARE - Transportation Answer Date Re corded In the past 12 months, has l ack of transportation kept you from medical appointments or from getting medications? No 10/12 In the past 12 months, has l ack of transportation kept you from meetings, work, or from getting things needed for daily living? No 10/27/2023 Nutrition Answer Date Recorded On average, how many serving s of fruits and vegetables do you eat per day (serving size is equal to 1 cup or approximately the size of a tennis ball)? 5 or more 10/27/2023 Dental Answer Date Recorded Dental: Regular Dentist Yes 08/28/19 23 Employment Answer Date Recorded Employment status Retired 10/27/2023 Housing Stability Answer Date Recorded What is your living situation today? I have a [facility] place to live 10/27/2023 Education Answer Date Recorded What is the highest level of school you have completed or the highest degree you have received? Master's degree (e.g., MA, MS, Haley, MEd, PHARMACY BENEFIT MANAGER, [place]) 08/27/2022 Sex and Gender Information Value Date Recorded Sex Assigned at Female 06/30/2022 11:25 AM TAX MAP TECHNICIAN Gender Identity Female 06/30/2022 11:25 AM TAX MAP TECHNICIAN Sexual Orientation Not on file documented as of this encounter Plan of Treatment Scheduled Orders Name Type Priority Associated Diagnoses Orde r Schedule Optical Coherence Tomography - Optic Nerve - OU - Both Eyes Ophthalmology Routine Glaucoma Suspect Ocular Hypertension Bilateral Expected: 10/31/2023 (Approximate), Expires: 01/30/2025 [place] Tomography (Pentacam) - OU - Both Eyes Ophthalmology Routine Endothelial Corneal Dystrophy Bilateral Expected: 10/31/2023 (Approximate), Expires: 01/30/2025 documented as of this encounter Visit Diagnoses Diagnosis Endothelial Corneal Dystrophy Bilateral- Primary Glaucoma Suspect Ocular Hypertension Bilateral documented in this encounter Care Teams Career Guidance Counselor Relationship Specialty Start Date End Date Elsewhere, Pcp PCP - General Internal Medicine 08/04/22 documented as of this encounter
--- OUTSIDE RECORDS SUMMARY | 2023-11-05 06:40 | XMS_ITS | Clinical Summary ---
Author Organization [email or web address] Address [place], [place] [address] Care Team Providers Care Bobcat Operator Name Role Phone Angeles Huntley MD Primary Care Provide r Allergies Active Allergy Reactions Criticality Noted Date Comments Bee Venom Protein (Honey Bee) Hives High 2022 Medications Medication Sig Dispensed Refills Start Date End Date Status Cholecalciferol, Vitamin D3, (VITAMIN D-3) 2,000 unit tablet Take 2 tablets by mouth once daily. 0 02/13/2017 Active aspirin 325 mg tabletIndications :TIA (transient ischemic attack) Take 1 Tablet (325 mg) by mouth once daily with a meal. 0 05/23/2022 Active prednisoLONE acetate 1% ophthalmic (ECONOPRED PLUS, PRED FORTE, OMNIPRED) suspension Place 1 Drop into left eye four times daily. 08/01/2022 Active cyanocobalamin (VITAMIN B12) 1,000 mcg tablet Take 1 Tablet (1,000 mcg) by mouth once daily. 0 01/23/2023 Active nortriptyline (PAMELOR) 10 mg capsuleIndication s:Mild recurrent major depression (HC) Take 3 Capsules (30 mg) by mouth at bedtime. 270 Capsule 3 01/23/2023 Active omeprazole (PRILOSEC) 20 mg Delayed-Release capsuleIndication s:Gastroesophagea l reflux disease, unspecified whether esophagitis present TAKE ONE CAPSULE BY MOUTH ONCE DAILY BEFORE A MEAL 90 Capsule 1 07/17/2023 Active polyethylene glycol-electrolyt e (GOLYTELY) 236-22.74-6.74 -5.86 gram suspensionIndicat ions:Encounter for screening colonoscopy Drink 2 liters (half the bottle) the day before colonoscopy and 2 liters (remaining prep) 6 hours prior to colonoscopy appointment. 4000 mL 09/06/2023 Active vit-mineral eye [id number] mg-lut-zeax (PreserVision AREDS-2) capsuleIndication s:AMD (age related macular degeneration) Take 1 Capsule by mouth two times daily. 10/30/2023 Active valACYclovir (VALTREX) 500 mg tabletIndications :Recurrent cold sores,History of corneal transplant TAKE ONE TABLET BY MOUTH 3 TIMES DAILY FOR 30 DAYS 90 Tablet 12/02/2022 Discontinue d(*Patient states no longer taking) Active Problems Problem Noted Date Diagnosed Date History of corneal transplant 08/19/2022 Adenomatous colon polyp 07/16/2019 Overview: Colonoscopy 07/2019- 25 mm polyp with high-grade dysplasia, several smaller tubular adenomas, repeat colonoscopy in 6 months at [facility] to assure complete removal of the high-grade dysplasia polyp Colonoscopy 07/2020 3 polyps, repeat in 3 years Fuchs' corneal dystrophy 09/14/2015 Sensorineural hearing loss, bilateral 03/11/2014 Vitamin D deficiency 07/25/2013 Status post right hip replacement 10/11/2011 Osteopenia 10/11/2011 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 Goncalves Herpes simplex conjunctivitis of left eye 1961 Overview: [id number] Resolved Problems Problem Noted Date Diagnosed Date Resolved Date Stressful life event affecting family 07/19/2011 04/02/2018 Overview: Spouse ill and in fragile health Encounters Date Type Department Care Team Description 10/30/2023 12:15 PM CDT Ancillary Procedure [facility] [address] [place] [address] 10/30/2023 10:55 AM CDT Preop Visit [facility] [address] [place] [address] Angeles Huntley MD Pre-Op Exam (Colonoscopy 11/05/23 [facility]/Has had hard BM's, has been using Mirilax /); Knee Pain/problem (Fell in July. Still has pain in the left knee area./Neuropathy./Ca n discuss at wellness check ) 10/30/2023 Travel 09/11/2023 10:40 AM CDT Ancillary Procedure [facility] [address] [place] [address] 09/11/2023 Travel 09/06/2023 Telephone [facility] [address] [place] [address] Donis Polo MD Screening 09/04/2023 Medical Messaging [facility] [address] [place] [address] Angeles Huntley MD need to schedule colonoscopy and mammogram now? from Last 3 Months Immunizations Name Administration Dates Next Due AMB INFLUENZA IIV3 (AGE 65+ YRS) PF (Flu Clinic Only) 04/30/2019 AMB Influenza, IIV3 (Age >=3 years)(Flu Clinic Only) 02/20/2012 Amb Influenza, Inact (High-d ose) (Flu Clinic Only) 03/11/2015 COVID-19 vaccine (Pfizer-Bio NTech 30mcg/0.3mL) 12YO+ BIVALENT PF, MDV 04/20/2022 COVID-19 vaccine (Pfizer-Bio NTech 30mcg/0.3mL) PF, MDV 08/23/2021,02/07/2021,07/08/2020,06/17 Hepatitis A (Adult) 12/20/2001,05/03/2000 Hepatitis B (Adult) 05/24/2009,01/20/2002,2001 Influenza A (H1N1), Inactivated 03/11/2009 Influenza Virus, Unspecified 04/30/2019, 04/02/2018,02/13/2017,05/25,03/11/2015,02/04/2014,03/20/2013 ,02/20/2012,01/30/2011,03/03/2010,02/12,02/16/2009,03/06/2008, 7,02/28/2005,02/24/2004,02/28/2003 Influenza, High-dose Inactivated 05/25/2016,01/13 Influenza, High-dose Quadriv alent Inactivated 03/02/2021,02/03/2020 Influenza, IIV3 (Age 6-35 mos) 01/30/2011,2009 Influenza, IIV3 (Age >=3 years) 02/05/20 14,03/20/2013,01/30/2011,03/03,03/06/2008,03/05/2007,02/28/2005 ,02/24/2004,02/28/2003 Influenza, Inactivated AIIV4 (Age 65+ Years) Preserv Free 02/09/2023,02/28/2022 Influenza, Inactivated IIV3 (Age 65+ Years) Preserv Free 04/02/2018,02/13/2017 Pneumococcal Poly,23-Valent (Pneumovax) 07/19/2012,05/03/2000 Pneumococcal conj 13-Valent (Prevnar 13) 08/10/2015 RSV, Recombinant ADJ Reconst ituted (Arexvy 120MCG/0.5mL) 02/24/2023 Td (Age >=7 Years) 08/22/2006,01/06/1997 Td, Preservative Free (age >= 7 Years) 7 Tdap 05/31/2011 Typhoid (injectable) 07/07/2016,05/24/19 10,12/20/2001,01/06 Yellow Fever 05/24/2009 Zoster (Shingrix-RZV, recombinant) 04/02/2019, Zoster (Zostavax-ZVL, live) 09/25/2010 Family History Medical History Relation Name Comments Cancer-colon Father mid-80's Other Mother atrial fib, chf Cancer Sister ovarian, age 50 Tinnitus Son Cancer-breast No Family History Relation Name Status Comments Father Mother Sister Son Social History Tobacco Use Types Packs/Day Years Used Date Smoking Tobacco: Never Smokeless Tobacco: Never Tobacco Cessation:Counseling Given: Yes Alcohol Use Standard Drinks/Week Comments Yes 4 (1 standard drink = 0.6 oz pur e alcohol) occas glass of wine PHQ-2 Answer Date Recorded PHQ-2 TOTAL SCORE 0 01/23/2023 Social Connections Answer Date Recorded Frequency of Communication with Friends and Fami ly 0 01/23/2023 Financial Resource Strain Answer Date R ecorded Difficulty of Paying Living Expenses 3 01/23/2023 Difficulty of Paying Living Expenses Not on file 01/23/2023 Food Insecurity Answer Date Recorded Worried About Running Out of Food in the Last Ye ar 1 01/23/2023 Transportation Needs Answer Date Record ed Lack of Transportation (Medical) 1 01/23/2023 Housing Stability Answer Date Recorded Unable to Pay for Housing in the Last Year 1 01/23/2023 Sex and Gender Information Value Date Recorded Sex Assigned at Not on file Gender Identity Not on file Sexual Orientation Not on file Obstetrics History Para Term AB IAB SAB Ectopic Multiple Livin g Live Births 3 3 3 3 Date Outcome GA Total Labor Labor/2nd/3rd Weight Sex Type Anes PTL Alisa A1 A5 Name Clin Term Term Term Last Filed Vital Signs Vital Sign Reading Time Taken Comments Blood Pressure 130/77 10/30/2023 11:10 AM CDT Pulse 71 10/30/2023 11:10 AM CDT Temperature 36.8 ??C (98.2 ??F) 02/20/2022 7:48 AM CD T Respiratory Rate 12 12/26/2021 5:04 PM CDT Oxygen Saturation 99% 10/30/2023 11:10 AM CDT Inhaled Oxygen Concentration - - Weight 68.6 kg (151 lb 3.2 oz) 10/30/2023 11:10 AM CDT Height 162.6 cm (5' 4) 10/30/2023 11:10 AM CDT Body Mass Index 25.95 10/30/2023 11:10 AM CDT Plan of Treatment Health Maintenance Due Date Last Done Comments Tetanus booster 05/31/2021 05/31/2011, 08/12, 08/22/2006, Additional history exists COVID-19 vaccine series ( season) 2023 02/09/2023, 04/20/2022, 08/23/2021, Additional history exists Influenza for age 65+ 01/13/2024 02/09/2023 , 02/28/2022, 03/02/2021, Additional history exists Depression screening for age 12+ 01/24/2024 01/23/2023, 08/09/2021, 06/20/2021, Additional history exists Medicare Wellness for age 65+ 01/24/2024, 08/09/2021, 07/09/2020, Additional history exists BMI (ht and wt on same day) for age 18+ 10/29/2024 10/30/2023, 01/23/2023, 02/28/2022, Additional history exists Tdap Completed 05/31/2011 Pneumococcal series for age 65+ Completed 08/10/2015, 07/19/2012, 05/03/2000 Zoster (shingles) series for age 50+ Completed 04/02/2019, 01/25/2019, 09/25/2010 DEXA/DXA scan for age 65+ Completed 2019, 07/25/2013, 06/05/2011 Procedures Procedure Name Priority Date/Time Associated Diagnosis Comments XR KNEE 3 VIEWS LEFT Routine 10/30/2023 12:14 PM CDT Acute pain of left knee XR MAMMO BILAT SCREENING Routine 09/11/2023 10:53 AM CDT Visit for screening mammogram XR DXA BONE DENSITY 2 SITES AXIAL Routine 07/09/2019 11:46 AM BATH TESTER Menopause from Last 3 Months or Most Recently Relevant to Health Maintenance Results * XR KNEE 3 VIEWS LEFT (10/30/2023 12:14 PM CDT) Anatomical Region Laterality Modality KNEES, KNEE L Computed Radiogr aphy 10/31/2023 8:57 AM CDT Narrative 10/31/2023 8:57 AM CDT For Patients: ??As a result of the 21st Century Cures Act, medical imaging exams and procedure reports are released immediately into your electronic medical record. ??You may view this report before your referring provider. ??If you have questions, please contact your health care provider. Indication: Knee pain Technique: Left knee 3 views Comparison: None Findings: Medial compartment narrowing and spurring with increased varus angulation. Osteopenia. No fracture. Mild patellofemoral narrowing and spurring. No large joint effusion. Impression: Moderate medial compartment degenerative joint disease and mild patellofemoral compartment degenerative joint disease. Dictated by Ricardo Cheng MD @ 10/31/2023 8:57:40 AM (Electronically Signed) Procedure Note Ricardo Cheng MD - 10/31/2023 For Patients: As a result of the Cures Act, medical imagingexams and procedure reports are released immediately into your electronicmedical record. You may view this report before your referring provider.If you have questions, please contact your health care provider. Indication: Knee pain Technique: Left knee 3 views Comparison: None Findings: Medial compartment narrowing and spurring with increased varus angulation.Osteopenia. No fracture. Mild patellofemoral narrowing and spurring. Nolarge joint effusion. Impression: Moderate medial compartment degenerative joint disease and mildpatellofemoral compartment degenerative joint disease. Dictated by Ricardo Cheng MD @ 10/31/2023 8:57:40 AM (Electronically Signed) Angeles Huntley MD GENERAL IMAGI NG * XR MAMMO BILAT SCREENING (09/11/2023 10:53 AM CDT) Anatomical Region Laterality Modality BREASTS, Breast Left, Breast Right Bilateral Mammography Impressions 09/11/2023 2:55 PM CDT ??There is no radiographic evidence for malignancy. ??Recommend annual mammograms. MAMMOGRAM ASSESSMENT: ??ACR 1 Negative PATIENTS: You will also receive a letter with your examination results in an easy to read format. ??If you have questions about your results, please contact your referring provider. Narrative 09/11/2023 2:55 PM CDT For Patients: As a result of the Cures Act, medical imaging exams and procedure reports are released immediately into your electronic medical record. You may view this report before your referring provider. If you have questions, please contact your health care provider. XR MAMMO BILAT SCREENING [[id number]] CLINICAL HISTORY: ??This is an asymptomatic 87 y.o. patient. INDICATION FOR EXAM: Mammogram Screening. TECHNIQUE: CC & MLO views were obtained. ??This study was evaluated with the assistance of Computer-Aided Detection. COMPARISON FILM: Yes 08/17/21 [facility] 07/09/20 [facility] FINDINGS: ??The breasts are heterogeneously dense, which may obscure small masses. There are no dominant masses, suspicious micro calcifications or areas of architectural distortion. Angeles Huntley MD MAMMO * (ABNORMAL) XR DXA BONE DENSITY 2 SITES AXIAL (07/09/2019 11:46 AM BATH TESTER) Anatomical Region Laterality Modality Spine, HIPS, HIPL, HIPR Other Narrative 07/14/2019 10:47 AM BATH TESTER Please see scanned document for results of this study. Angeles Huntley MD DEXA from Last 3 Months or Most Recently Relevant to Health Maintenance Advance Directives Documents on File Type Date Recorded Patient Occupational Work Experience Teacher Expl anation Healthcare Directive 12/12/2021 022 Healthcare Directive 10/12/2011 12:41 PM M Alexander HEALTH CARE DIRECTIVE, [facility], 01/14/2007 Care Teams Bobcat Operator Relationship Specialty Start Date End Date Angeles Huntley MD [address] [place] [address] PCP - General Family Practice 10/05/11
--- OUTSIDE RECORDS SUMMARY | 2023-11-05 06:40 | XMS_ITS | Encounter Summary ---
Author Organization [facility] Address [address] [place] [address] Care Team Providers Care Hardware Manager Name Role Phone Elsewhere, Pcp Primary Care Provider Unavailabl e Reason for Visit * Reason Onset Date Comments Pre-visit Intake 10/16/2023 Encounter Details Date Type Department Care Team (Latest Contact Info) Description 10/16/2023 9:15 AM CDT Clinical Communication Virtual Review in [place], [place] [address] [place] [phone] Pre-visit Intake Social History Tobacco Use Types Packs/Day Years Used Date Smoking Tobacco: Never Smokeless Tobacco: Never Tobacco Cessation:Counseling Given: Not Answered Alcohol Use Standard Drinks/Week Comments Not Currently 0 (1 standard drink = 0.6 oz pur e alcohol) Humiliation, Afraid, Rape, and Kick questionnair e [...] often do you attend chur ch or congregational services? More than 4 times per year 08/27/2022 Do you belong to any clubs o r organizations such as sabianist groups, unions, fraternal or athletic groups, or [...] and heating? Not hard at all 08/27/2022 [facility] Occupat ional Health - Occupational Stress [...] exercise (like a brisk walk)? 7 days 08/27/2022 On average, how many minutes do you engage in exercise at this level? 60 min 08/27/2022 Hunger Vital Sign Answer Date Recorded Within the past 12 months, y ou worried that your food would run out before you got the money to buy more. Never true 08/28/19 23 Within the past 12 months, t he food you bought just didn't last and you didn't have money to get more. Never true 08/27/2022 PRAPARE - Transportation Answer Date Re corded In the past 12 months, has l ack of transportation kept you from medical appointments or from getting medications? No 08/12 In the past 12 months, has l ack of transportation kept you from meetings, work, or from getting things needed for daily living? No 08/27/2022 Housing Stability Vital Sign Answer Zaid e Recorded In the last 12 months, was t here a time when you were not able to pay the mortgage or rent on time? No 08/27/2022 In the last 12 months, how many places have you lived? 1 08/27/2022 In the last 12 months, was t here a time when you did not have a steady place to sleep or slept in a fpc (including now)? No 08/27/2022 Nutrition Answer Date Recorded On average, how many serving s of fruits and vegetables do you eat per day (serving size is equal to 1 cup or approximately the size of a tennis ball)? 4-5 08/27/2022 Dental Answer Date Recorded Dental: Regular Dentist Yes 08/28/19 Employment Answer Date Recorded Employment status Retired 08/27/2022 Education Answer Date Recorded What is the highest level of school you have completed or the highest degree you have received? Master's degree (e.g., MA, MS, Haley, MEd, IMPLEMENTATION PROJECT MANAGER, [place]) 08/27/2022 Sex and Gender Information Value Date Recorded Sex Assigned at Female 06/30/2022 11:25 AM PREFITTER Gender Identity Female 06/30/2022 11:25 AM PREFITTER Sexual Orientation Not on file documented as of this encounter Plan of Treatment Not on file documented as of this encounter Visit Diagnoses Not on filedocumented in this encounter Care Teams Hardware Manager Relationship Specialty Start Date End Date Elsewhere, Pcp PCP - General Internal Medicine 08/04/22 documented as of this encounter
--- OUTSIDE RECORDS SUMMARY | 2023-11-05 06:40 | XMS_ITS | Encounter Summary ---
Author Organization [facility] Address [address] [place] [address] Care Team Providers Care Precision Mechanical Instrument Maker Name Role Phone Elsewhere, Pcp Primary Care Provider Unavailabl e Encounter Details Date Type Department Care Team (Late st Contact Info) Description 01/05/2005 Historical Ophthalmology RST OPH Jaime Prasad M.D. Social History Tobacco Use Types Packs/Day Years Used Date Smoking Tobacco: Never Assessed Sex and Gender Information Value Date Recorded Sex Assigned at Female 06/30/2022 11:25 AM ESTATE PLANNING PARALEGAL Gender Identity Female 06/30/2022 11:25 AM ESTATE PLANNING PARALEGAL Sexual Orientation Not on file documented as of this encounter Progress Notes * Jaime Prasad M.D. 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 pt went to her local eye doctor to be evaluated for cataract surgery. was told she has fuchs dystrophy as well. 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 No AM to PM difference. IMPRESSION / REPORT / PLAN #1 Fuchs dystrophy #2 cataract #3 anterior basememt membrane dystrophy Combine for aberration . Plan ;Discussed relateive contribution of each. The Cornea guttata are extensive but with a thickness in the low 500u range, should tolerate unocmplicted phace. May be a bit steamy initially. ABMD may play a luis armando in postop aberration, but lookds mild now. Discussed allscenarios > 30minutes DIAGNOSIS #1 Fuchs dystrophy #2 cataract #3 anterior basememt membrane dystrophy CDM Reports - EYEGEN Id: [id number] Status: Fnl documented in this encounter Plan of Treatment Not on file documented as of this encounter Visit Diagnoses Not on filedocumented in this encounter Care Teams Precision Mechanical Instrument Maker Relationship Specialty Start Date End Date Elsewhere, Pcp PCP - General Internal Medicine 08/04/22 documented as of this encounter
--- OUTSIDE RECORDS SUMMARY | 2023-11-05 06:40 | XMS_ITS | Clinical Summary ---
Author Organization [facility] Address [address] [place] [address] Care Team Providers Care Zipper Measurer Name Role Phone Elsewhere, Pcp Primary Care Provider Unavailabl e Source Comments Patient records contain information from all sites at [facility]. For routine questions regarding patient records, call [phone] during business hours, M-F 8:00 AM - 5:00 PM Central Time. Record requests for emergency care only can be directed to [phone] at any time.[facility] Allergies Active Allergy Reactions Criticality Noted Date Comments Bee Venom Protein (Honey Bee) Hives with other symptoms including blisters High 01/25/2023 Medications Medication Sig Dispensed Refills Start Date End Date Status aspirin 325 mg tablet Take 325 mg by mouth daily. 05/23/2022 Active cholecalciferol (VITAMIN D3) 50 mcg (2,000 Unit) tablet Take 2 tablets by mouth daily. 02/13/2017 Active valACYclovir (VALTREX) 500 mg tablet Take 1 tablet (500 mg total) by mouth 3 (three) times a day. 30 tablet 1 08/01/2022 Active moxifloxacin (VIGAMOX) 0.5 % ophthalmic solution 1 drop to operated eye 4 times per day for 1 week, starting the day after surgery 3 mL 1 10/30/2022 Active cyanocobalamin (VITAMIN B12) 1,000 mcg tablet Take 1,000 mcg by mouth daily. 01/23/2023 Active omeprazole (PriLOSEC) [address] capsule Take 20 mg by mouth. 01/23/2023 Active nortriptyline (PAMELOR) 10 mg capsule Take 30 mg by mouth daily. 08/18/2022 Active vitamins A,C,X-jjru-ggjkt r (PRESERVISION AREDS) 7,160 Units-113 mg-100 Units per tablet Take by mouth 2 (two) times a day. Active prednisoLONE acetate (PRED FORTE) 1 % ophthalmic suspension Administer 1 drop into both eyes at bedtime. 10 mL 11 10/31/2023 Active prednisoLONE acetate (PRED FORTE) 1 % ophthalmic suspension Administer 1 drop into both eyes as directed. 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 Endothelial Corneal Dystrophy Bilateral (Primary Dx); Glaucoma Suspect Ocular Hypertension Bilateral 10/16/2023 9:15 AM CDT Clinical Communication Virtual Review in [address] [address] Pre-visit Intake from Last 3 Months Family History Medical History Relation Name Comments Retinal detachment Father Relation Name Status Comments Father Social History Tobacco Use Types Packs/Day Years Used Date Smoking Tobacco: Never Smokeless Tobacco: Never Tobacco Cessation:Counseling Given: Not Answered Alcohol Use Standard Drinks/Week Comments Not Currently 0 (1 standard drink = 0.6 oz pur e alcohol) [facility] Utilities Answer Date Recorded In the past 12 months has th e electric, gas, oil, or water company threatened to shut off services in your [...] week 08/27/2022 How often do you attend [facility] or christian services? More than 4 times per year 08/27/2022 Do you belong to any clubs o r organizations such as restorationist groups, unions, fraternal or athletic groups, or [...] and heating? Not hard at all 08/27/2022 [facility] of Occupat ional Health - Occupational Stress [...] your living situation today? I have a [facility] place to live 10/27/2023 Education Answer Date Recorded What is the highest level of school you have completed or the highest degree you have received? Master's degree (e.g., MA, MS, Haley, MEd, REPAIRER [place]IRSPRING, [place]) 08/27/2022 Sex and Gender Information Value Date Recorded Sex Assigned at Female 06/30/2022 11:25 AM FOOD SAFETY SCIENTIST Gender Identity Female 06/30/2022 11:25 AM FOOD SAFETY SCIENTIST Sexual Orientation Not on file Last Filed Vital Signs Vital Sign Reading Time Taken Comments Blood Pressure 106/71 10/30/2022 1:00 PM CDT Pulse 66 10/30/2022 1:00 PM CDT Temperature 36.7 ??C (98.1 ??F) 10/30/2022 11:06 AM C DT Respiratory Rate 14 10/30/2022 1:00 PM CDT Oxygen Saturation 94% 10/30/2022 1:00 PM CDT Inhaled Oxygen Concentration - - Weight 66.7 kg (147 lb 0.8 oz) 10/30/2022 11:06 AM CDT Height 166 cm (5' 5.35) 07/31/2022 9:26 AM CDT Body Mass Index 24.21 07/31/2022 9:26 AM CDT Plan of Treatment Health Maintenance Due Date Last Done Comments DTaP,Tdap,and Td Vaccines (2 - Td or Tdap) 05/31/2021 05/31/2011, 08/22/2006 Depression Screening (Annual PHQ-2) 05/14/2023 Fall Risk Screen (Annual) 05/14/2023 COVID-19 Vaccine (2022- 4 season) 2023 02/09/2023, 04/20/2022, 08/23/2021, Additional history exists Pneumococcal vaccine (65+ years) Completed 08/10/2015, 07/19/2012, 05/03/2000 Zoster Vaccines Completed 04/02/2019, 01/12, 09/25/2010 Influenza Vaccine Completed 02/09/2023, , 03/02/2021, Additional history exists Medical Devices Implanted Type Area Reduction Furnace Operator Device Identifier Shelf Expiration Date Model / Serial / Lot Donor Cornea Implanted:Qty : 1 on 07/31/2022 by Lyly Rivera M.D. at [facility]/Wen Bone or Tissue Left: Eye [facility] Eye Bank 08/07/2022 [id number] ODP / [id number] ODP / Donor Cornea Implanted:Qty : 1 on 10/30/2022 by Lyly Rivera M.D. at [facility]/Wen Bone or Tissue Right: Eye [facility] Eye Bank 11/07/2022 [id number] OSP / / Advance Directives For more information, please contact: [phone] Documents on File Type Date Recorded Patient Government Program Manager Expl anation Advance Directives 06/21/2023 12:08 PM BODY /ORGAN DONATION Advance Directives 08/07/2022 11:10 AM Mily Gomez HCPOA/ADVOCATE/AGENT/R EPRESENTATIVE/SURROGAT E Healthcare Agents on File Name Relationship Healthcare Agent Relationship Communication Byronpaola Nicola Madisonyd Partner Health Care Agent Calos Gomez Son First Alternate Health Care Agent Care Teams Zipper Measurer Relationship Specialty Start Date End Date Elsewhere, Pcp PCP - General Internal Medicine 08/04/22
--- OUTSIDE RECORDS SUMMARY | 2023-11-05 06:40 | XMS_ITS | Referral Summary ---
Author Organization [facility] Address [address] [place] [address] Care Team Providers Care Warp Dyeing Tender Name Role Phone Elsewhere, Pcp Primary Care Provider Unavailabl e Source Comments Patient records contain information from all sites at [facility]. For routine questions regarding patient records, call [phone] during business hours, M-F 8:00 AM - 5:00 PM Central Time. Record requests for emergency care only can be directed to [phone] at any time.[facility] Encounters Date Type Department Care Team Description 10/31/2023 10:45 AM CDT Office Visit Department of Ophthalmology in [address] [address] Lyly Rivera M.D. Endothelial Corneal Dystrophy Bilateral (Primary Dx); Glaucoma Suspect Ocular Hypertension Bilateral 10/16/2023 9:15 AM CDT Clinical Communication Virtual Review in [address] [address] Pre-visit Intake from Last 3 Months Allergies Active Allergy Reactions Criticality Noted Date [...] mg by mouth daily. 08/18/2022 Active vitamins A,C,Z-liev-btbpw r (PRESERVISION AREDS) 7,160 Units-113 mg-100 Units [...] Overview: Added automatically from request for surgery [id number] Resolved Problems Problem Noted Date Diagnosed Date Resolved Date Cerebrovascular Atherosclerotic Disease 08/04/2022 08/04/2022 Social History Tobacco Use Types Packs/Day Years Used Date Smoking Tobacco: Never Smokeless Tobacco: Never Tobacco Cessation:Counseling Given: Not Answered Alcohol Use Standard Drinks/Week Comments Not Currently 0 (1 standard drink = 0.6 oz pur e alcohol) [facility] Utilities Answer Date Recorded In the past 12 months has e [employer], gas, oil, or water [employer] threatened to shut off services in your [...] 08/27/2022 How often do you attend chur or spiritism services? More than 4 times per year 08/27/2022 Do you belong to any clubs o r organizations such as rastafarian groups, unions, fraternal or athletic groups, or [...] and heating? Not hard at all 08/27/2022 [facility] [place] of Occupat ional Health - Occupational Stress [...] your living situation today? I have a [facility] place to live 10/27/2023 Education Answer Date Recorded What is the highest level of school you have completed or the highest degree you have received? Master's degree (e.g., MA, MS, Haley, MEd, MACHINE PLASTER MIXER, [place]) 08/27/2022 Sex and Gender Information Value Date Recorded Sex Assigned at Female 06/30/2022 11:25 AM HUMAN RESOURCES SERVICES SPECIALIST Gender Identity Female 06/30/2022 11:25 AM HUMAN RESOURCES SERVICES SPECIALIST Sexual Orientation Not on file Last Filed [...] 07/31/2022 9:26 AM CDT Plan of Treatment Not on file Medical Devices Implanted Type Area Patch Worker Device Identifier Shelf Expiration Date Model / Serial / Lot Donor Cornea Implanted:Qty : 1 on 07/31/2022 by Lyly Rivera M.D. at [facility] [place] Bone or Tissue Left: Eye [facility] Eye Bank 08/07/2022 ODP / ODP / Donor Cornea Implanted:Qty : 1 on 10/30/2022 by Lyly Rivera M.D. at [facility] [place] Bone or Tissue Right: Eye [facility] Eye Bank 11/07/2022 OSP / / Advance Directives For more information, please contact: [phone] Documents on File Type Date Recorded Patient Distance Education Teacher Expl anation Advance Directives 06/21/2023 12:08 PM BODY /ORGAN DONATION Advance Directives 08/07/2022 11:10 AM Mily Gomez HCPOA/ADVOCATE/AGENT/R EPRESENTATIVE/SURROGAT E Healthcare Agents on File Name Relationship Healthcare Agent Relationship Communication Mily Hussein Partner Health Care Agent Calos Gomez Son First [facility] Health Care Agent Care Teams Warp Dyeing Tender Relationship Specialty Start Date End Date Elsewhere, Pcp PCP - General Internal Medicine 08/04/22
--- OUTSIDE RECORDS SUMMARY | 2023-11-05 06:40 | XMS_ITS ---
Author Organization [facility] Address [address] [place] [address] Care Team Providers Care Document Control Coordinator Name Role Phone Unavailable Unavailable Unavailable Surgery Details Not on file Complications Check Surgery Details section. Procedure Estimated Blood Loss Check Surgery Details section. Procedure Findings Check Surgery Details section. Procedure Specimens Taken Check Surgery Details section.
--- NOTE | 2023-11-05 07:49 | W.ANESCHARGE ---
Anesthesia Charges Start Date/Time Anesthesia Start Date: 11/05/23 Anesthesia Start Time: 07:18 Stop Date/Time Anesthesia Stop Date: 11/05/23 Anesthesia Stop Time: 07:45
--- NOTE | 2023-11-05 08:33 | W.ANESCHARGE ---
Anesthesia Charges Start Date/Time Anesthesia Start Date: 11/05/23 Anesthesia Start Time: 07:18 Stop Date/Time Anesthesia Stop Date: 11/05/23 Anesthesia Stop Time: 07:45
--- NOTE | 2023-11-05 08:35 | W.ANESCHARGE ---
Anesthesia Charges Start Date/Time Anesthesia Start Date: 11/05/23 Anesthesia Start Time: 07:18 Stop Date/Time Anesthesia Stop Date: 11/05/23 Anesthesia Stop Time: 07:45 Summary Extremes of Age - Over 70 or under 1: MDA
== END 2023-11-05 06:38 | disposition home or self-care (01) ==
LOC: OP CLINIC 06:38
PROVIDERS: PCP Family Medicine; Visit Provider Internal Medicine Gastroenterology
DX: K63.5 Polyp of colon (principal); Z86.010 Personal history of colon polyps
CPT/HCPCS: 00811; 45385; 88305; 99100; J2704

== ENCOUNTER 2024-02-18 08:34 | Outpatient (RCR) | payer MEDICARE, BC, SELFPAY | END 2024-06-17 23:59 | disposition home or self-care (01) | PROVIDERS: PCP Family Medicine; Visit Provider Family Medicine | DX: M25.562 Pain in left knee (principal); Z74.09 Other reduced mobility; Z51.89 Encounter for other specified aftercare | CPT/HCPCS: 97110; 97162 ==

== ENCOUNTER 2024-12-02 17:54 | Emergency (ER) | payer MEDICARE, BC, SELFPAY ==
[2024-12-02] VITALS (10 sets, daily range): BP systolic 136–199; BP diastolic 72–113; PULSE 64–72; RESP 7–17; TEMP 36.1–36.6; O2SAT 93–97
--- NOTE | 2024-12-02 17:56 | ED.GENADULT ---
HPI - General Adult General Chief complaint: Chest Pain Stated complaint: possible heart attack Time Seen by Provider: 12/02/24 17:56 History of Present Illness HPI narrative: 35min episode of chest pain on Sunday afternoon while at rest. Went to but they could not do a workup, so she went home. Had another episode Sunday night. [place], intermittent episodes all weekend. Today, had follow up with PCP in clinic ( [facility]). EKG changes from previous ( inverted T waves in V1, V3 , AVF) per clinic. Patient denies pain at present but did have pain while in clinic today. 89-year-old woman presenting to the emergency department with concern of chest pain. Accompanied by her significant other. Four days ago experience some intense squeezing chest pain and then some throat tightness. resolved with rest. Lasted about 35 minutes. Was not evaluated at that time. She notes that has had chest pains before her workup has come to nothing. She does report having follow-up echocardiograms. I do not have access to these reports. Denies heart failure. Pain return again briefly but much less 3 days ago and then returned after lunch today. Discomfort has not been accompanied by shortness of breath or nausea. Today was seen in clinic by primary care provider and with concerning changes noting ?flipped? T-waves in V1 V3 and AVF I believe, was directed to this emergency department. Total discomfort lasted maybe an hour and a half prior to presentation here in the emergency department. Was advised by primary care provider to present to the emergency department with this unspecified and chest pain. Was noted to have high blood pressure and was certainly elevated upon arrival here today. Has not noted a sense of palpitations/irregular heartbeats. History of heartburn treated with omeprazole. This discomfort has been different. No recent cough or cold symptoms. 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 With a question of history of TIAs does continue to take daily aspirin. Extensive imaging results were all normal. Related Data Home Medications ?Medication ?Instructions ?Recorded ?Confirmed cholecalciferol (vitamin D3) 25 2,000 unit PO .Bedtime 12/26/21 12/02/24 mcg (1,000 unit) tablet nortriptyline 10 mg capsule 30 mg PO .hs 12/26/21 12/02/24 aspirin 325 mg capsule 325 mg PO DAILY 12/02/24 12/02/24 cyanocobalamin (vitamin B-12) 1,000 mcg PO DAILY 12/02/24 12/02/24 1,000 mcg capsule mv-mn-folic 200 mcg-vit K 15 1 cap PO BID 12/02/24 12/02/24 mcg-lutein 5 mg-zeaxanthin 1 mg capsule (PreserVision AREDS 2 Plus Multivit) omeprazole 20 mg capsule,delayed 20 mg PO DAILY 12/02/24 12/02/24 release prednisolone acetate 1 % eye 1 drp ophthalmic (eye) QID 12/02/24 12/02/24 drops,suspension Allergies Allergy/AdvReac Type Severity Reaction Status Date / Time No Known Drug Allergies Allergy Verified 12/02/24 18:07 Review of Systems Status of ROS: Reports: 6 or more systems reviewed and unremarkable except as noted in History and below [facility] Medical History Health care directive on file ?Z78.9 - Other specified health status (ICD-10) Diverticular disease (03/17/09) ?K57.90 - Diverticulosis of intestine, part unspecified, without perforation or abscess without bleeding (ICD-10) Fracture of left patella (2007) ?S82.002A - Unspecified fracture of left patella, initial encounter for closed fracture (ICD-10) Herpes simplex conjunctivitis, 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) ?B00.53 - Herpesviral conjunctivitis (ICD-10) Surgical History 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) ?Z96.649 - Presence of unspecified artificial hip joint (ICD-10) History of carpal tunnel release (03/17/09) ?Z98.890 - Other specified postprocedural states (ICD-10) Hx of appendectomy ?Z90.49 - Acquired absence of other specified parts of digestive tract (ICD-10) Social History 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, 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 Highest level of school completed/degree received: Master's degree Physical activity type details: Biking and walking How many days of moderate to strenuous exercise, like a brisk walk, did you do in the last 7 days: 5 Smoking Status: Never smoker Do you use any of these nicotine containing products: None How often do you have a drink containing alcohol: 4 or more times a week How many standard drinks containing alcohol do you have on a typical day: 1 or 2 AUDIT-C Alcohol total score: 4 Non-prescribed substance use: denies use Caffeine: No Are you now , , , , never or living with a partner: Social isolation score (0-1 are the most socially isolated patients): 0 Do you think of yourself as: straight/heterosexual Gender Identity: female Are you currently sexually active: Yes In the past 12 months, how many sex partners have you had: one service: No Exam Narrative: Exam Narrative: Pleasant. Seems a little uncomfortable or tired. Speaking easily. Cranial nerves 2-12 intact. Moving all extremities without difficulty with what I would presume is normal strength. Breathing easily. Lungs are clear. No supraclavicular crepitus. Oropharynx is unremarkable. She is moderately sore to palpation across the mid to left upper chest and of little under the left breast. Abdomen is soft and nontender. Extremities are well perfused without edema. Heart in regular rate and rhythm without murmur rub or gallop. Equal pulses in upper extremities. Const: Vital Signs, click to edit/add: Vital Signs - 24 hr 12/02/24 18:07 12/02/24 18:07 12/02/24 18:33 Temperature 97.4 F L Pulse Rate 70 72 Pulse Rate [Pulse Oximeter] 70 Respiratory Rate 17 16 Blood Pressure 199/99 H 178/113 H Blood Pressure [Ri ght Upper Arm] 199/99 H Pulse Oximetry 96 97 95 Oxygen Delivery Me thod Room Air 12/02/24 18:45 12/02/24 19:00 12/02/24 19:02 Temperature Pulse Rate 67 69 Pulse Rate [Pulse Oximeter] Respiratory Rate 13 15 Blood Pressure 161/84 H Blood Pressure [Ri ght Upper Arm] Pulse Oximetry 96 95 96 Oxygen Delivery Me thod 12/02/24 19:15 12/02/24 19:32 12/02/24 20:02 Temperature 97.8 F Pulse Rate 66 66 65 Pulse Rate [Pulse Oximeter] Respiratory Rate 13 16 13 Blood Pressure 140/72 H 136/74 Blood Pressure [Ri ght Upper Arm] Pulse Oximetry 95 95 97 Oxygen Delivery Me thod 12/02/24 20:15 12/02/24 21:04 Temperature 97 F L Pulse Rate 65 Pulse Rate [Pulse Oximeter] 64 Respiratory Rate 7 L 16 Blood Pressure Blood Pressure [Ri ght Upper Arm] 148/83 H Pulse Oximetry 97 93 Oxygen Delivery Me thod Room Air Documenting provider has reviewed patient's vital signs: yes Course Vital Signs Vital signs: Initial Vital Signs Temperature 97.4 F L 12/02/24 18:07 Temperature Source Temporal Artery Scan 12/02/24 18:07 Pulse Rate 70 12/02/24 18:07 Respiratory Rate 17 12/02/24 18:07 Blood Pressure 199/99 H 12/02/24 18:07 Blood Pressure Mean 132 H 12/02/24 18:07 Blood Pressure Position Sitting 12/02/24 18:07 Pulse Oximetry 96 12/02/24 18:07 Oxygen Delivery Method Room Air 12/02/24 18:07 Vital Signs Temperature 97.4 F L 12/02/24 18:07 Pulse Rate 70 12/02/24 18:07 Respiratory Rate 17 12/02/24 18:07 Blood Pressure 199/99 H 12/02/24 18:07 Pulse Oximetry 96 12/02/24 18:07 Oxygen Delivery Method Room Air 12/02/24 18:07 Temperature 97 F L 12/02/24 21:04 Pulse Rate 64 12/02/24 21:04 Respiratory Rate 16 12/02/24 21:04 Blood Pressure 148/83 H 12/02/24 21:04 Pulse Oximetry 93 12/02/24 21:04 Oxygen Delivery Method Room Air 12/02/24 21:04 Medical Decision Making MDM Narrative Medical decision making narrative: Blood pressure is indeed elevated at this time. Would presume this represents physical stress or pain response. Certainly description of symptoms recently is concerning. This might represent an arrhythmia as well or ischemic cardiovascular disease. Possible esophageal spasm related to esophageal reflux. Vascular disruption? Pneumothorax? Pulmonary embolus? She does have very reproducible chest pain which suggests chest wall etiology like costochondritis; it does not appear though that this was the kind of pain that she was experiencing before. Will monitor on monitoring specialist. Check standard labs including serial troponins. Does not apparently need anything for pain or nausea at this time. One-view Chest x-ray independently reviewed by me is WNL with normal mediastinum and pleural spaces. I did compare EKG to prior available here; a more recent one from 2022. I am not sure there has been a clear change in her EKG. There appear to be some equivocal findings in concerning leads as mentioned below. I do not appreciate ischemic changes otherwise here today. Labs returned with mildly elevated D-dimer at 0.86. This is negative adjusting for age. With last evaluation for chest pain did have a D-dimer that was 1.6 which is considerably more than today. Imaging at that time was negative for vascular anomaly or pulmonary embolus. Discomfort has continued to settle during time in the emergency department. Still with mild discomfort though to palpation of her chest wall. There are no events on monitoring specialist during time of monitoring in the ER. Blood pressure is markedly improved. See patient discharge plan for further discussion Continue to take your aspirin and your omeprazole at this point. I would message your primary care provider about your visit here today. Consider taking 400 mg of ibuprofen 3 times daily over the next 4 days. Probably take it with little bit of food. Yes. In spite of relatively negative workups in the past, if you have a recurrence of the type of pain that you were describing at 1st onset, I would return to the emergency department. Best wishes in your upcoming show. Medical Records Medical records reviewed: Yes I reviewed the patient's medical records Lab Data Lab results reviewed: Yes I reviewed the patient's lab results Labs: Lab Results 12/02/24 12/02/24 12/02/24 Range/Units 18:16 18:31 20:15 WBC 7.24 (4.50-11.00) K/uL RBC 4.18 (4.00-5.20) m/uL Hgb 13.1 (12.0-16.0) gm/dL Hct 39.4 (33.0-51.0) % MCV 94 (80-100) fL MCH 31 (26-34) pg MCHC 33 (32-36) gm/dL RDW Coeff of [place] 12.6 (11.5-15.5) % Plt Count 315 (140-440) K/uL Neut % (Auto) 63.0 (42.0-72.0) % Lymph % (Auto) 26.9 (20-44) % [place] % (Auto) 6.4 (0.0-11.0) % Eos % (Auto) 2.9 (0.0-7.0) % Baso % (Auto) 0.7 (0.0-3.0) % Neut # (Auto) 4.56 (1.7-7.0) K/uL Lymph # (Auto) 1.95 (0.90-2.90) K/uL [place] # (Auto) 0.50 (0.00-0.90) K/UL Eos # (Auto) 0.21 (0.00-0.50) K/uL Baso # (Auto) 0.05 (0.00-0.30) K/uL Abs Immat Gran (auto) 0.01 (0.00-0.30) K/uL Imm/Tot Granulo (auto) 0.1 % D-Dimer Quant (PE/DVT) 0.86 H (0.00-0.50) ug/ml Sodium 139 (135-149) mmol/L Potassium 4.1 (3.6-5.1) mmol/L Chloride 106 (96-114) mmol/L Carbon Dioxide 29 (20-32) mmol/L Anion Gap 4 L (7-15) mEq/L BUN 15 (7-30) mg/dL Creatinine 0.8 (0.5-1.5) mg/dL Estimated GFR 70 ml/min Glucose 83 (60-115) mg/dL Calcium 9.0 (8.4-10.6) mg/dL Troponin I < 0.01 (0.01-0.04) ng/mL C-Reactive Protein < 0.5 L (0.5-1.0) mg/dL NT-Pro-B Natriuret Pep 91 (See Note) pg/mL POC Troponin I 0.01 0.00 L (0.01-0.04) ng/ml ECG Data Attestation: I personally reviewed and interpreted this ECG as follows: (Normal sinus rhythm. There are inverted Ts in V1. However this EKG in general looks very similar to an EKG we have from 2022. Comparing the two; prior had somewhat equivocal findings in concerning leads as mentioned above.) Discharge Plan Discharge Clinical Impression: Chest pain, Chest wall pain Patient Disposition: Home w/ Parent or Adult Condition: Improved Instructions: Chest Pain (ED) Additional Instructions: Continue to take your aspirin and your omeprazole at this point. I would message your primary care provider about your visit here today. Consider taking 400 mg of ibuprofen 3 times daily over the next 4 days. Probably take it with little bit of food. Yes. In spite of relatively negative workups in the past, if you have a recurrence of the type of pain that you were describing at 1st onset, I would return to the emergency department. Best wishes in your upcoming show. Prescriptions: No Action nortriptyline 10 mg capsule 30 mg PO .hs cholecalciferol (vitamin D3) 25 mcg (1,000 unit) tablet 2,000 unit PO .Bedtime aspirin 325 mg capsule 325 mg PO DAILY cyanocobalamin (vitamin B-12) 1,000 mcg capsule 1,000 mcg PO DAILY prednisolone acetate 1 % drops,suspension 1 drp ophthalmic (eye) QID Rx Instructions: one drop left eye four times a day omeprazole 20 mg capsule,delayed release(DR/EC) 20 mg PO DAILY PreserVision AREDS 2 Plus MV 200 mcg-15 mcg- 5 mg-1 mg capsule 1 cap PO BID Follow Up/Referrals: Angeles Huntley MD [Primary Care Provider, Family Practice] Stand Alone Forms: [employer]th Info Instructions
--- OUTSIDE RECORDS SUMMARY | 2024-12-02 17:56 | XMS_ITS | Clinical Summary ---
Author Organization [facility] Address [address] [place] [address] Care Team Providers Care C.O.D. Biller Name Role Phone Elsewhere, Pcp Primary Care Provider Unavailabl e Source Comments Patient records contain information from all sites at [facility]. For routine questions regarding patient records, call [phone] during business hours, M-F 8:00 AM - 5:00 PM Central Time. Record requests for emergency care only can be directed to [phone] at any time.[facility] Allergies Active Allergy Reactions Criticality Noted Date Comments Bee Venom Protein (Honey Bee) Hives with other symptoms including blisters High 01/25/2023 Medications * This document contains information received from the source organization and may not represent a complete record from that organization. aspirin 325 mg tablet Take 325 mg by mouth daily. 3 Active cholecalciferol (VITAMIN D3) 50 mcg (2,000 Unit) tablet Take 2 tablets by mouth daily. 7 Active valACYclovir (VALTREX) 500 mg tablet Take 1 tablet (500 mg total) by mouth 3 (three) times a day. 30 tablet 1 3 Active moxifloxacin (VIGAMOX) 0.5 % ophthalmic solution 1 drop to operated eye 4 times per day for 1 week, starting the day after surgery 3 mL 1 3 Active cyanocobalamin (VITAMIN B12) 1,000 mcg tablet Take 1,000 mcg by mouth daily. 3 Active omeprazole (PriLOSEC) [address] capsule Take 20 mg by mouth. 3 Active nortriptyline (PAMELOR) 10 mg capsule Take 30 mg by mouth daily. 3 Active vitamins A,C,E-zinc-addy er (PRESERVISION AREDS) 7,160 Units-113 mg-100 Units per tablet Take by mouth 2 (two) times a day. Active prednisoLONE acetate (PRED FORTE) 1 % ophthalmic suspension Administer 1 drop into both eyes at bedtime. 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 Overview (06/12/2022): Added automatically from request for surgery [id number] Resolved Problems Problem Noted Date Diagnosed Date Resolved Date Cerebrovascular Atherosclerotic Disease 08/04/2022 08/04/2022 Family History Medical History Relation Name Comments Retinal detachment Father Relation Name Status Comments Father Social History Tobacco Use Types Packs/Day Years Used Date Smoking Tobacco: Never Smokeless Tobacco: Never Tobacco Cessation:Counseling Given: Not Answered Alcohol Use Standard Drinks/Week Comments Not Currently 0 (1 standard drink = 0.6 oz pur e alcohol) [facility] Utilities Answer Date Recorded In the past 12 months has [facility] [employer], gas, oil, or water [employer] threatened to shut off services in your [...] by your partner or ex-partner? No 08/27/2022 Hunger Vital Sign Answer Date Recorded [...] things needed for daily living? No 10/27/2023 Housing Stability Answer Date Recorded What is your living situation today? I have a [facility] place to live 10/27/2023 Education Answer Date Recorded What is the highest level of school you have completed or the highest degree you have received? Master's degree (e.g., MA, MS, Haley, MEd, EMERGENCY PLANNER, [place]) 08/27/2022 Comments No Sex and Gender Information Value Date Recorded Sex Assigned at Female 06/30/2022 11:25 AM UNDER GROUND MINER Legal Sex Female 7:29 AM UNDER GROUND MINER Gender Identity Female 06/30/2022 11:25 AM UNDER GROUND MINER Sexual Orientation Not on file Last Filed Vital Signs Vital Sign Reading Time Taken Comments Blood Pressure 106/71 10/30/2022 1:00 PM CDT Pulse 66 10/30/2022 1:00 PM CDT Temperature 36.7 C (98.1 F) 10/30/2022 11:06 AM CDT Respiratory Rate 14 10/30/2022 1:00 PM CDT Oxygen Saturation 94% 10/30/2022 1:00 PM CDT Inhaled Oxygen Concentration - - Weight 66.7 kg (147 lb 0.8 oz) 10/30/2022 11:06 AM CDT Height 166 cm (5' 5.35) 07/31/2022 9:26 AM CDT Body Mass Index 24.21 07/31/2022 9:26 AM CDT Plan of Treatment Upcoming Encounters Date Type Department Care Team (Latest Contact Info) Description 02/02/2025 11:30 AM CDT Clinical Communication Virtual Review in [place], [place] 200 [place] [address] 02/03/2025 8:30 AM CDT Ancillary Procedure Department of Ophthalmology in [place], [place] [address] [place] [phone] 02/03/2025 9:00 AM CDT Ancillary Procedure Department of Ophthalmology in [place], [place] [address] [place] [phone] Lyly Rivera M.D. [address] [place] [phone] 02/03/2025 9:15 AM CDT Ancillary Procedure Department of Ophthalmology in [address] [address] Lyly Rivera M.D. [address] [place] [phone] 02/03/2025 9:30 AM CDT Office Visit Department of Ophthalmology in [address] [phone] Chelsea Lopez O.D. [address] [place] [phone] Health Maintenance Due Date Last Done Comments DTaP,Tdap,and Td Vaccines (2 - Td or Tdap) 05/31/2021 05/31/2011, 08/22/2006 COVID-19 Vaccine ( season) 2024 02/09/2023, 04/20/2022, 08/23/2021, Additional history exists Depression Screening (Annual PHQ-2) 05/14/2024 Fall Risk Screen (Annual) 05/14/2024 Influenza Vaccine (#1) 2025 , 02/09/2023, 02/28/2022, Additional history exists Pneumococcal vaccine (50+ years) Completed 08/10/2015, 07/19/2012, 05/03/2000 Zoster Vaccines Completed 04/02/2019, 01/12, 09/25/2010 RSV vaccine - (32-36 weeks) or 60+ years Completed 02/24/2023 IPV Vaccines Aged Out No longer eligi ble based on patient's age to complete this topic Medical Devices Implanted Type Area Grade School Teacher Device Identifier Shelf Expiration Date Model / Serial / Lot Donor Cornea Implanted:Qty : 1 on 07/31/2022 by Lyly Rivera M.D. at [facility] [place] Bone or Tissue Left: Eye [facility] Eye Bank 08/07/2022038 ODP / ODP / Donor Cornea Implanted:Qty : 1 on 10/30/2022 by Lyly Rivera M.D. at [facility] [place] Bone or Tissue Right: Eye [facility] Eye Bank 11/07/202208 OSP / / Insurance [facility] MEDIC[facility] Advance Directives For more information, please contact: [phone] Documents on File Type Date Recorded Patient Apparatus Lineman Expl anation Advance Directives 06/21/2023 12:08 PM BODY /ORGAN DONATION Advance Directives 08/07/2022 11:10 AM Mily HusseinCalos Jason HCPOA/ADVOCATE/AGENT/R EPRESENTATIVE/SURROGAT E Healthcare Agents on File Name Relationship Healthcare Agent Relationship Communication Mily Hussein Partner Health Care Agent Calosaminah Gomez Son First Alternate Health Care Agent Care Teams C.O.D. Biller Relationship Specialty Start Date End Date Elsewhere, Pcp PCP - General Internal Medicine 08/04/22
--- OUTSIDE RECORDS SUMMARY | 2024-12-02 17:56 | XMS_ITS | Encounter Summary ---
Author Organization [facility] Address [address] [place] [address] Care Team Providers Care Sheet Tester Name Role Phone Elsewhere, Pcp Primary Care Provider Unavailabl e Encounter Details Date Type Department Care Team (Late st Contact Info) Description 01/05/2005 Historical Ophthalmology RST OPH Jaime Prasad M.D. Social History Tobacco Use Types Packs/Day Years Used Date Smoking Tobacco: Never Assessed Comments Unknown Sex and Gender Information Value Date Recorded Sex Assigned at Female 06/30/2022 11:25 AM DOG BREEDER Legal Sex Female 7:29 AM DOG BREEDER Gender Identity Female 06/30/2022 11:25 AM DOG BREEDER Sexual Orientation Not on file documented as of this encounter Progress Notes * Jaime Prasad M.D. 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 pt went to her local [...] membrane dystrophy CDM Reports - EYEGEN Id: [id number] Status: Fnl documented in this encounter Plan of Treatment Upcoming Encounters Date Type Department Care Team (Latest Contact Info) Description 02/02/2025 11:30 AM CDT Clinical Communication Virtual Review in [place], [place] 200 [place] [address] 02/03/2025 8:30 AM CDT Ancillary Procedure Department of Ophthalmology in [address] [address] 02/03/2025 9:00 AM CDT Ancillary Procedure Department of Ophthalmology in [address] [address] Lyly Rivera M.D. [address] [place] [phone] 02/03/2025 9:15 AM CDT Ancillary Procedure Department of Ophthalmology in [address] [address] Lyly Rivera M.D. [address] [place] [phone] 02/03/2025 9:30 AM CDT Office Visit Department of Ophthalmology in [address] [phone] Chelsea Lopez O.D. [address] [place] [phone] documented as of this encounter Visit Diagnoses Not on filedocumented in this encounter Care Teams Sheet Tester Relationship Specialty Start Date End Date Elsewhere, Pcp PCP - General Internal Medicine 08/04/22 documented as of this encounter
--- OUTSIDE RECORDS SUMMARY | 2024-12-02 17:56 | XMS_ITS | Clinical Summary ---
Author Organization [facility] Address [address] [place] [id number] Care Team Providers Care Process Safety Engineer Name Role Phone Angeles Huntley MD Primary Care Provide r Allergies Active Allergy Reactions Criticality Noted Date Comments Bee Venom Protein (Honey Bee) Hives High 2022 Medications Cholecalciferol, Vitamin D3, (VITAMIN D-3) 2,000 unit tablet Take 2 tablets by mouth once daily. 0 7 Active aspirin 325 mg tabletIndication s:TIA (transient ischemic attack) Take 1 Tablet (325 mg) by mouth once daily with a meal. 0 3 Active prednisoLONE acetate 1% ophthalmic (ECONOPRED PLUS, PRED FORTE, OMNIPRED) suspension Place 1 Drop into left eye four times daily. 3 Active cyanocobalamin (VITAMIN B12) 1,000 mcg tablet Take 1 Tablet (1,000 mcg) by mouth once daily. 0 3 Active vit-mineral eye [id number] (PreserVision AREDS-2) capsuleIndicatio ns:AMD (age related macular degeneration) Take 1 Capsule by mouth two times daily. 4 Active nortriptyline (PAMELOR) 10 mg capsuleIndicatio ns:Mild recurrent major depression Take 3 Capsules (30 mg) by mouth at bedtime. 270 Capsule 3 4 Active omeprazole (PRILOSEC) 20 mg Delayed-Release capsuleIndicatio ns:Gastroesophag eal reflux disease, unspecified whether esophagitis present Take 1 Capsule (20 mg) by mouth once daily before a meal. 90 Capsule 3 4 Active polyethylene glycoL (MIRALAX) 17 gram/scoop powder Mix 1 scoop (17 g) in liquid then take by mouth once daily if needed for Constipation. 4 Active Active Problems Problem Noted Date Diagnosed Date History of corneal transplant 08/19/2022 Adenomatous colon polyp 07/16/2019 Overview (11/13/2023): Colonoscopy 07/2019- 25 mm polyp with high-grade dysplasia, several smaller tubular adenomas, repeat colonoscopy in 6 months at [facility] to assure complete removal of the high-grade dysplasia polyp Colonoscopy 07/2020 3 polyps, repeat in 3 years Colonoscopy 11/2023 2-TA, repeat in 5 years Fuchs' corneal dystrophy 09/14/2015 Sensorineural hearing loss, bilateral 03/11/2014 Vitamin D deficiency 07/25/2013 Status post right hip replacement 10/11/2011 Osteopenia 10/11/2011 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 Goncalves Herpes simplex conjunctivitis of left eye 1961 Overview (08/18/2022): [id number] Resolved Problems Problem Noted Date Diagnosed Date Resolved Date Stressful life event affecting family 07/19/2011 04/02/2018 Overview (07/19/2011): Spouse ill and in fragile health Encounters Date Type Department Care Team Description 12/02/2024 3:30 PM CDT Office Visit [facility] [address] [place] [address] Angeles Huntley MD Chest Pain (Had 2 episodes of chest pain since 11/28/24, Sunday night and over night./Sunday night did have a feeling of some tightness in the chest./Had done yoga early on Sunday and hadn't done for a bit as she had been gone. After yoga she stood for a couple hours in her studio. Noticed tightening in the chest up into her throat. Reminded her of when she had a TIA./) 12/01/2024 Travel 12/01/2024 Telephone [facility] [address], [place] [id number] Angeles Huntley MD Appointment Request (Transient ischamic attack) from Last 3 Months Immunizations Immunization Administration Dates Next Due AMB INFLUENZA IIV3 [...] A (H1N1), Inactivated 03/11/2009 Influenza Virus, Unspecified 02/28/2022, 04/30/2019,04/02/2018,02/13,05/25/2016,03/11/2015,02/04/2014 ,03/20/2013,02/20/2012,01/30/2011,02/12,03/11/2009,02/16/2009, 8,03/05/2007,02/28/2005,02/24/2004, Influenza, High-dose Inactivated 05/25/2016,01/13 Influenza, High-dose Quadriv alent Inactivated 03/02/2021,02/03/2020 Influenza, IIV3 (Age 6-35 mos) 01/30/2011,2009 Influenza, IIV3 (Age >=3 years) 02/05/20 14,03/20/2013,01/30/2011,03/03,03/06/2008,03/05/2007,02/28/2005 ,02/24/2004,02/28/2003 Influenza, Inactivated AIIV4 (Age 65+ Years) Preserv Free 02/09/2023,02/28/2022 Influenza, Inactivated IIV3 (Age 65+ Years) Preserv Free 01/25/2024,04/02/2018,02/13/2017 Pneumococcal Poly,23-Valent (Pneumovax) 07/19/2012,05/03/2000 Pneumococcal conj 13-Valent [...] Answer Date Recorded PHQ-2 TOTAL SCORE 0 01/25/2024 Social Connections Answer Date Recorded Do you often feel lonely or isolated from those around you? 0 01/25/2024 Financial Resource Strain Answer Date R ecorded Difficulty of Paying Living Expenses 3 01/25/2024 Difficulty of Paying Living Expenses Not on file 01/25/2024 Food Insecurity Answer Date Recorded Do you worry your food will run out before you are able to buy more? 1 01/25/2024 Transportation Needs Answer Date Record ed Does lack of transportation keep you from medica l appointments? 1 01/25/2024 Does lack of transportation keep you from work, meetings or getting things that you need? 1 01/25/2024 Housing Stability Answer Date Recorded What is your housing situation today? 1 01/25/2024 Utilities Answer Date Recorded Do you have trouble paying f or utilities (for example, heat, electricity, water, phone)? 1 01/25/2024 Comments No Sex and Gender Information Value Date Recorded Sex Assigned at Not on file Legal Sex Female 6:12 AM SENIOR WEALTH ADVISOR Gender Identity Not on file Sexual Orientation Not on file Travel History Travel Start Travel End [place] 11/21/2024 11/26/2024 Obstetrics History Para Term AB IAB SAB Ectopic Multiple Livin g Live Births 3 3 3 3 Date Outcome GA Total Labor Labor/2nd/3rd Weight Sex Type Anes PTL Alisa A1 A5 Name Clin Term Term Term Last Filed Vital Signs Vital Sign Reading Time Taken Comments Blood Pressure 145/84 12/02/2024 4:21 PM CDT Pulse 68 12/02/2024 4:21 PM CDT Temperature 36.8 C (98.2 F) 02/20/2022 7:48 AM CDT Respiratory Rate 12 12/26/2021 5:04 PM CDT Oxygen Saturation 97% 12/02/2024 4:19 PM CDT Inhaled Oxygen Concentration - - Weight 67.4 kg (148 lb 8 oz) 12/02/2024 4:19 PM CDT Height 162.6 cm (5' 4) 01/25/2024 11:49 AM CDT Body Mass Index 25.49 01/25/2024 11:49 AM CDT Plan of Treatment Health Maintenance Due Date Last Done Comments Tetanus booster 05/31/2021 05/31/2011, 08/12, 08/22/2006, Additional history exists COVID-19 vaccine series ( season) 2024 05/29/2024, 11/13/2023, 02/09/2023, Additional history exists Influenza Vaccine (#1) 2025 , 02/09/2023, 02/28/2022, Additional history exists BMI (ht and wt on same day) for age 18+ 01/24/2025 01/25/2024, 10/30/2023, 01/23/2023, Additional history exists Depression screening for age 12+ 01/24/2025 01/25/2024, 01/23/2023, 08/09/2021, Additional history exists Medicare Wellness for age 65+ 01/25/2025, 01/23/2023, 08/09/2021, Additional history exists Hepatitis B series for 19+ Completed 05/24, 01/20/2002, 12/20/2001 Pneumococcal series for age 50+ Completed 08/10/2015, 07/19/2012, 05/03/2000 Zoster (shingles) series for age 50+ Completed 04/02/2019, 01/25/2019, 09/25/2010 DEXA/DXA scan for age 65+ Completed 2019, 07/25/2013, 06/05/2011 RSV vaccine for adults or Completed 02/24/2023 Procedures Procedure Name Priority Date/Time Associated Diagnosis Comments XR DXA BONE DENSITY 2 SITES AXIAL Routine 07/09/2019 11:46 AM SENIOR WEALTH ADVISOR Menopause from Last 3 Months or Most Recently Relevant to Health Maintenance Results * (ABNORMAL) XR DXA BONE DENSITY 2 SITES AXIAL (07/09/2019 11:46 AM SENIOR WEALTH ADVISOR) Anatomical Region Laterality Modality Spine, HIPS, HIPL, HIPR Other Narrative 07/14/2019 10:47 AM SENIOR WEALTH ADVISOR Please see scanned document for results of this study. 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
--- NOTE | 2024-12-02 18:32 | CRLHL7_ITS ---
For Patients: As a result of the Century Cures Act, medical imaging exams and procedure reports are released immediately into your electronic medical record. You may view this report before your referring provider. If you have questions, please contact your health care provider. INDICATION: Mid to left chest pain. TECHNIQUE: Chest 1 view. COMPARISON: 01/21/2023. FINDINGS: Cardiovascular and mediastinum: Heart size and vasculature are normal in caliber and appearance. Lungs and pleural spaces: The lungs are clear. No pleural effusion or pneumothorax. Bones and soft tissues: Unremarkable for age. IMPRESSION: No evidence of an acute pulmonary process. Dictated by Enrique Smart MD @ 12/02/2024 7:13:37 PM (Electronically Signed)
[2024-12-02 18:36] LABS: Troponin, Point-of-Care* 0.01 ng/ml (0.01-0.04)
[2024-12-02 18:46] LABS: Hematocrit 39.4 % (33.0-51.0); Hemoglobin* 13.1 gm/dL (12.0-16.0); Immature Granulocytes Abs Auto 0.01 K/uL (0.00-0.30); Immature Granulocytes Pct Auto 0.1 %; Lymphocytes Absolute Auto 1.95 K/uL (0.90-2.90); Mean Corpuscular HGB Conc 33 gm/dL (32-36); Mean Corpuscular Hemoglobin 31 pg (26-34); Mean Corpuscular Volume 94 fL (80-100); RDW Coefficient of Variation % 12.6 % (11.5-15.5); Red Blood Count 4.18 m/uL (4.00-5.20); White Blood Count* 7.24 K/uL (4.50-11.00)
[2024-12-02 18:48] LABS: Slide Review Reflex No
[2024-12-02 19:03] LABS: Chloride* 106 mmol/L (96-114)
[2024-12-02 19:04] LABS: Potassium* 4.1 mmol/L (3.6-5.1); Sodium* 139 mmol/L (135-149)
[2024-12-02 19:07] LABS: Anion Gap 4 mEq/L (7-15); Blood Urea Nitrogen* 15 mg/dL (7-30); Calcium* 9.0 mg/dL (8.4-10.6); Carbon Dioxide* 29 mmol/L (20-32); Creatinine* 0.8 mg/dL (0.5-1.5); Estimated Glomerular Filt Rate 70 ml/min; Glucose* 83 mg/dL (60-115)
[2024-12-02 19:09] LABS: D Dimer Quantitative* 0.86 ug/ml (0.00-0.50)
[2024-12-02 19:19] LABS: NT Pro B Type NatriureticPept* 91 pg/mL (See Note)
[2024-12-02 20:32] LABS: Troponin, Point-of-Care* 0.00 ng/ml (0.01-0.04)
== END 2024-12-02 21:26 | disposition home or self-care (01) ==
PROVIDERS: Emergency Provider Family Medicine; PCP Family Medicine
DX: R07.9 Chest pain, unspecified (principal)
CPT/HCPCS: 36415; 71045; 80048; 83880; 84484; 85025; 85379; 86140; 94761; 99284